=== PATIENT | male | born 1940 | race Caucasian/White ===

== ENCOUNTER 2022-06-28 15:01 | Inpatient (IN) | payer MEDICARE, BC, SELFPAY ==
[2022-06-28] VITALS (14 sets, daily range): BP systolic 141–170; BP diastolic 85–89; PULSE 74–79; RESP 16–36; TEMP 36.1–37.6; O2SAT 88–92; BMI 28.2; BMI 29.4
--- NOTE | 2022-06-28 15:30 | CRLHL7_ITS ---
For Patients: As a result of the Century Cures Act, medical imaging exams and procedure reports are released immediately into your electronic medical record. You may view this report before your referring provider. If you have questions, please contact your health care provider. HISTORY: Shortness of breath. TECHNIQUE: Two views of the chest. COMPARISON: 03/28/2021. CT 03/30/2021. FINDINGS: Three lead pacer device with leads terminating within the expected location of the right atrium, right ventricle and coronary sinus. Cardiac size is borderline enlarged. New small left pleural effusion. There are few areas of patchy opacity within the lungs which may relate to subtle infiltrates. These are overall similar to the prior examination suggesting chronic interstitial infiltrates. There is no segmental or lobar consolidation. No pneumothorax. IMPRESSION: No change in interstitial lung infiltrates. Dictated by Alton Sandoval MD @ 06/28/2022 4:32:02 PM Dictated by: Alton Sandoval MD @ 06/28/2022 16:32:09 (Electronically Signed)
--- NOTE | 2022-06-28 15:38 | ED_ITS ---
HPI - Weakness General Date Seen: 06/28/22 <John Lee MD - Last Filed: 06/28/22 20:23> Chief complaint: Unspecified Complaint, Adult <John Lee MD - Last Filed: 06/28/22 20:23> Stated complaint: Shaking Not Eating <John Lee MD - Last Filed: 06/28/22 20:23> Time Seen by Provider: 06/28/22 15:04 <John Lee MD - Last Filed: 06/28/22 20:23> Source: patient and family <John Lee MD - Last Filed: 06/28/22 20:23> Mode of arrival: ambulatory <John Lee MD - Last Filed: 06/28/22 20:23> Limitations: no limitations <John Lee MD - Last Filed: 06/28/22 20:23> History of Present Illness HPI Narrative: Patient is a 82-year-old gentleman who presents here for evaluation of weakness overall and not eating he has also been shaking, he has been in all hospital now for the past 2 years, on off with most recent in April, he was in a convalescence our senior living in [place], discharge there I believe on Thursday, and came up here to [place]. He is here with his daughter who he lives with, she says that he feels and seems like that he is very weak and shaky at home. She does not think she is able to care for him there because of this. He feels hot but she admits that her thermometer is broken at home. Daughter is a nurse. History of cellulitis of the right upper extremity, history of diabetes mellitus, history of acute pulmonary edema, history chronic kidney disease stage 5, history of heart failure, history of fluid overload, history chronic obstructive pulmonary disease, history of DVT of the right upper extremity, history of previous cardiac pacemaker, history of hypertension, history of anemia, history of weakness, history of falling, history of NSTEMI, history of so wasting, history of dysphagia, history of BPH, <John Lee MD - Last Filed: 06/28/22 20:23> Related Data Home medications: Home Medications Medication Instructions Recorded Confirmed allopurinol 100 mg tablet 50 mg PO QAM gout pain 06/28/22 06/28/22 atorvastatin 40 mg tablet 40 mg PO QPM 06/28/22 06/28/22 bumetanide 2 mg tablet mg PO 06/28/22 carvedilol 12.5 mg tablet 12.5 mg PO BID 06/28/22 06/28/22 finasteride 5 mg tablet 5 mg PO DAILY 06/28/22 06/28/22 insulin glargine 100 unit/mL (3 12 unit subcut BID 06/28/22 06/28/22 mL) subcutaneous pen (Lantus Solostar U-100 Insulin) losartan 25 mg tablet 25 mg PO DAILY 06/28/22 06/28/22 tamsulosin 0.4 mg capsule 0.4 mg PO DAILY 06/28/22 06/28/22 <John Lee MD - Last Filed: 06/28/22 20:23> Allergies/Adverse reactions: Allergies Allergy/AdvReac Type Severity Reaction Status Date / Time No Known Drug Allergies Allergy Verified 06/28/22 15:21 <John Lee MD - Last Filed: 06/28/22 20:23> Review of Systems Status of ROS: Reports: 10 or more systems reviewed and unremarkable except as noted in History and below <John Lee MD - Last Filed: 06/28/22 20:23> [facility] Medical History: Medical History (Updated 06/28/22 @ 20:10 by Jacquelyn White MD) Abnormal liver function tests (~11/23/20) ?R79.89 - Other specified abnormal findings of blood chemistry (ICD-10) Anemia (~01/31/21) ?D64.9 - Anemia, unspecified (ICD-10) Anemia in chronic kidney disease (~03/18/21) ?N18.9 - Chronic kidney disease, unspecified (ICD-10) ?D63.1 - Anemia in chronic kidney disease (ICD-10) Benign prostatic hyperplasia without urinary obstruction (~11/23/20) ?N40.0 - Benign prostatic hyperplasia without lower urinary tract symptoms (ICD-10) Bleeding gastrointestinal (~12/13/20) ?K92.2 - Gastrointestinal hemorrhage, unspecified (ICD-10) Cardiomyopathy (~10/13/13) ?I42.9 - Cardiomyopathy, unspecified (ICD-10) Chronic combined systolic (congestive) and diastolic (congestive) heart failure (~11/23/20) ?I50.42 - Chronic combined systolic (congestive) and diastolic (congestive) heart failure (ICD-10) Chronic kidney disease, stage III (moderate) (~09/21/13) ?N18.30 - Chronic kidney disease, stage 3 unspecified (ICD-10) Diabetes mellitus type 2 in obese (~09/10/12) ?E11.69 - Type 2 diabetes mellitus with other specified complication (ICD-10) ?E66.9 - Obesity, unspecified (ICD-10) Diabetic nephropathy associated with type 2 diabetes mellitus (~09/10/12) ?E11.21 - Type 2 diabetes mellitus with diabetic nephropathy (ICD-10) Gout (~01/08/16) ?M10.9 - Gout, unspecified (ICD-10) Hyperlipidemia (~10/03/13) ?E78.5 - Hyperlipidemia, unspecified (ICD-10) Hypertension (~10/13/13) ?I10 - Essential (primary) hypertension (ICD-10) Left bundle branch block (~10/13/13) ?I44.7 - Left bundle-branch block, unspecified (ICD-10) Leg swelling (~12/15/13) ?M79.89 - Other specified soft tissue disorders (ICD-10) Pneumonia due to COVID-19 virus (~11/18/20) ?U07.1 - COVID-19 (ICD-10) ?J12.82 - Pneumonia due to coronavirus disease 2019 (ICD-10) Streptococcal septicemia (~02/04/21) ?A40.9 - Streptococcal sepsis, unspecified (ICD-10) Systolic heart failure (~02/1999) ?I50.20 - Unspecified systolic (congestive) heart failure (ICD-10) Type 2 DE (myocardial infarction) (~01/31/21) ?I21.A1 - Myocardial infarction type 2 (ICD-10) <John Lee MD - Last Filed: 06/28/22 20:23> Surgical History: Surgical History (Updated 06/28/22 @ 20:06 by Jacquelyn White MD) S/P right knee arthroscopy (~10/20/05) ?Z98.890 - Other specified postprocedural states (ICD-10) S/P TURP ?Z90.79 - Acquired absence of other genital organ(s) (ICD-10) <John Lee MD - Last Filed: 06/28/22 20:23> Family History: Family History (Updated 06/28/22 @ 20:07 by Jacquelyn White MD) Brother Diabetes Kidney disease Cancer Father Diabetes Heart disease Mother Diabetes <John Lee MD - Last Filed: 06/28/22 20:23> Social History: Social History (Updated 06/28/22 @ 20:11 by Jacquelyn White MD) Narrative: Was living in [place] until after most recent hospitalization. He is staying with his daughter, who is a nurse. Quit tobacco use at age 17, 1956. Denies alcohol or recreational drug use. Full Code in 2020. <John Lee MD - Last Filed: 06/28/22 20:23> Exam Narrative: Exam Narrative: Patient is seen in room 6, he is pleasant alert he appears to be in no distress, speaking to me normally despite their respiratory rate in the high 20s pupils are equal round reactive to light, is TMs are normal his oropharynx normal, JVP is 4-6 cm, neck is supple, cranial nerves 3-12 are normal. Chest has crackles in the bases to mid scapula bilaterally, no dullness to percussion no signs of other respiratory distress, heart sounds no clicks murmurs or gallops, his right upper extremity is more swollen and atrophied in comparison to the left, pulses are normal in his upper extremities, as there in lower extremities he has 2+ pitting edema bilaterally in his lower extremities, but normal power symmetrical right versus left. His abdomen is soft and pot belly, no dullness to percussion, tenderness on palpation bowel sounds are quiet. I spoke to the daughter, explained him that we will check for a number of things, but we need to have admission reason to admit him to the hospital. <John Lee MD - Last Filed: 06/28/22 20:23> Const: Vital Signs, click to edit/add: Vital Signs - 24 hr 06/28/22 15:12 06/28/22 17:58 06/28/22 18:00 Temperature 99.6 F Pulse Rate 77 76 Pulse Rate [Pulse Oximeter] 79 Respiratory Rate 36 H Blood Pressure Blood Pressure [Ri ght Upper Arm] 170/89 H Pulse Oximetry 89 88 91 Oxygen Delivery Me thod Room Air 06/28/22 18:15 06/28/22 18:30 06/28/22 18:45 Temperature Pulse Rate 75 74 74 Pulse Rate [Pulse Oximeter] Respiratory Rate Blood Pressure Blood Pressure [Ri ght Upper Arm] Pulse Oximetry 89 89 89 Oxygen Delivery Me thod 06/28/22 18:49 Temperature Pulse Rate 78 Pulse Rate [Pulse Oximeter] Respiratory Rate Blood Pressure 159/89 H Blood Pressure [Ri ght Upper Arm] Pulse Oximetry 91 Oxygen Delivery Me thod <John Lee MD - Last Filed: 06/28/22 20:23> Vital Signs, click to edit/add: Vital Signs - 24 hr 06/28/22 15:12 06/28/22 17:58 06/28/22 18:00 Temperature 99.6 F Pulse Rate 77 76 Pulse Rate [Pulse Oximeter] 79 Respiratory Rate 36 H Blood Pressure Blood Pressure [Ri ght Upper Arm] 170/89 H Pulse Oximetry 89 88 91 Oxygen Delivery Me thod Room Air 06/28/22 18:15 06/28/22 18:30 06/28/22 18:45 Temperature Pulse Rate 75 74 74 Pulse Rate [Pulse Oximeter] Respiratory Rate Blood Pressure Blood Pressure [Ri ght Upper Arm] Pulse Oximetry 89 89 89 Oxygen Delivery Me thod 06/28/22 18:49 Temperature Pulse Rate 78 Pulse Rate [Pulse Oximeter] Respiratory Rate Blood Pressure 159/89 H Blood Pressure [Ri ght Upper Arm] Pulse Oximetry 91 Oxygen Delivery Me thod <Salma Ramos MD - Last Filed: 06/28/22 19:23> Documenting provider has reviewed patient's vital signs: yes <John Lee MD - Last Filed: 06/28/22 20:23> Course Reevaluation(s) Reevaluation #1: Patient was evaluated, his right arm is not showing any evidence of erythema but the distal forearm, wrist and hand are quite edematous. Seems to be painful for him to mobilize the wrist. His daughter notes that he had the wrist and the elbow drained when he was in the hospital with sepsis. She is worried when he tries to lay down that he actually is getting short of breath. He was shaking at home, she wondered about recurrent sepsis. He is just out of the senior living at the [facility] in [place]. He has only been with his daughter a short couple of days now. He is sitting up in the bed, O2 sats are anywhere from 88-90%. I do see a p.r.n. 1 L oxygen order in his senior living orders for shortness of breath. I have added on a procalcitonin, D-dimer as well as a venous ultrasound of his right arm. His chest x-ray has been read as stable interstitial infiltrates. I have 2 troponins, 1 on arrival 0.19 and 1 at sometime after 6:00 p.m. that is 0.22. I have spoken with the hospitalist whom is requesting I talked to Cardiology prior to admission. I think this patient needs observation for possible recurrent cellulitis versus sepsis that might be developing. Right now there are no symptoms that suggest infection on his arm but his C reactive protein is quite elevated. It is possible that his C reactive protein is so elevated as this may be inflammatory reaction from something as simple as gout. I did add on a uric acid. I have reviewed his EKG from arrival which is showing some flipped T-waves inferiorly without any significant ST segment changes, flipped T-wave V6 and flattening in V5. He has nonspecific intra conduction delay. Daughter does not know any troponin levels while he was in the hospital or if they were elevated in [place]. Patient also has chronic renal failure with creatinine of 2.2 here today. <Salma Peng MD - Last Filed: 06/28/22 19:23> Time: 18:56 <Salma Ramos MD - Last Filed: 06/28/22 19:23> Reevaluation #2: Spoke with Dr. Petra Rodriguez Cardiology. He believes these to be strain pattern, patient get sick and leaks troponins. He would not take him to a laborer cheesemaking, would not do any intervention. He was able to see an EKG from September in his system and sounds to be similar to the 1 I am seeing today. I have spoken with Dr. White, she accepts. <Salma Ramos MD - Last Filed: 06/28/22 19:23> Time: 19:20 <Salma Ramos MD - Last Filed: 06/28/22 19:23> Vital Signs Vital signs: Initial Vital Signs Temperature 99.6 F 06/28/22 15:12 Temperature Source Temporal Artery Scan 06/28/22 15:12 Pulse Rate 79 06/28/22 15:12 Respiratory Rate 36 H 06/28/22 15:12 Blood Pressure 170/89 H 06/28/22 15:12 Blood Pressure Mean 116 06/28/22 15:12 Blood Pressure Position Supine 06/28/22 15:12 Pulse Oximetry 89 06/28/22 15:12 Oxygen Delivery Method Room Air 06/28/22 15:12 Vital Signs Temperature 99.6 F 06/28/22 15:12 Pulse Rate 79 06/28/22 15:12 Respiratory Rate 36 H 06/28/22 15:12 Blood Pressure 170/89 H 06/28/22 15:12 Pulse Oximetry 89 06/28/22 15:12 Oxygen Delivery Method Room Air 06/28/22 15:12 Temperature 99.6 F 06/28/22 15:12 Pulse Rate 78 06/28/22 18:49 Respiratory Rate 36 H 06/28/22 15:12 Blood Pressure 159/89 H 06/28/22 18:49 Pulse Oximetry 91 06/28/22 18:49 Oxygen Delivery Method Room Air 06/28/22 15:12 <John Lee MD - Last Filed: 06/28/22 20:23> Initial Vital Signs Temperature 99.6 F 06/28/22 15:12 Temperature Source Temporal Artery Scan 06/28/22 15:12 Pulse Rate 79 06/28/22 15:12 Respiratory Rate 36 H 06/28/22 15:12 Blood Pressure 170/89 H 06/28/22 15:12 Blood Pressure Mean 116 06/28/22 15:12 Blood Pressure Position Supine 06/28/22 15:12 Pulse Oximetry 89 06/28/22 15:12 Oxygen Delivery Method Room Air 06/28/22 15:12 Vital Signs Temperature 99.6 F 06/28/22 15:12 Pulse Rate 79 06/28/22 15:12 Respiratory Rate 36 H 06/28/22 15:12 Blood Pressure 170/89 H 06/28/22 15:12 Pulse Oximetry 89 06/28/22 15:12 Oxygen Delivery Method Room Air 06/28/22 15:12 Temperature 99.6 F 06/28/22 15:12 Pulse Rate 78 06/28/22 18:49 Respiratory Rate 36 H 06/28/22 15:12 Blood Pressure 159/89 H 06/28/22 18:49 Pulse Oximetry 91 06/28/22 18:49 Oxygen Delivery Method Room Air 06/28/22 15:12 <Salma Ramos MD - Last Filed: 06/28/22 19:23> MDM - Weakness Lab Data Attestation: I reviewed the patient's lab results. <Salma Ramos MD - Last Filed: 06/28/22 19:23> Labs: Lab Results 06/28/22 06/28/22 06/28/22 Range/Units 16:00 17:57 18:12 WBC 9.54 (4.50-11.00) K/uL RBC 3.64 L (4.30-5.90) m/uL Hgb 11.4 L (13.5-17.5) gm/dL Hct 34.4 L (37.0-53.0) % MCV 95 (80-100) fL MCH 31 (26-34) pg MCHC 33 (32-36) gm/dL RDW Coeff of Chris 14.5 (11.5-15.5) % Plt Count 161 (140-440) K/uL Neut % (Auto) 70.3 (42.0-72.0) % Lymph % (Auto) 12.8 L (20-44) % [place] % (Auto) 15.4 H (0.0-11.0) % Eos % (Auto) 0.6 (0.0-7.0) % Baso % (Auto) 0.3 (0.0-3.0) % Neut # (Auto) 6.70 (1.7-7.0) K/uL Lymph # (Auto) 1.20 (0.90-2.90) K/uL [place] # (Auto) 1.50 H (0.00-0.90) K/UL Eos # (Auto) 0.06 (0.00-0.50) K/uL Baso # (Auto) 0.03 (0.00-0.30) K/uL INR 1.09 (0.91-1.10) APTT 33 (23-33) Seconds D-Dimer Quant (PE/DVT) < 0.27 (0.00-0.50) ug/ml Sodium 137 (135-149) mmol/L Potassium 4.6 (3.6-5.1) mmol/L Chloride 104 (96-114) mmol/L Carbon Dioxide 25 (20-32) mmol/L BUN 63 H (7-30) mg/dL Creatinine 2.2 H (0.5-1.5) mg/dL Estimated Creat Clear 23.76 Estimated GFR 29 ml/min Glucose 290 H (60-115) mg/dL Uric Acid 8.7 H (2.2-8.4) mg/dL Calcium 9.8 (8.4-10.6) mg/dL C-Reactive Protein 5.4 H (0.5-1.0) mg/dL NT-Pro-B Natriuret Pep 96201 pg/mL Procalcitonin 0.12 (<0.50) ng/mL Urine Color Yellow (Yellow) Urine Appearance Clear (Clear) Urine pH 6.0 (5.0-8.5) Ur Specific [place]ila 1.020 (1.000-1.030) Urine Protein 3+ A (Negative) Urine Glucose (UA) Trace A (Negative) Urine Ketones Negative (Negative) Urine Blood 3+ A (Negative) Urine Nitrite Negative (Negative) Urine Bilirubin Negative (Negative) Urine Urobilinogen 0.2 (0.2-1.0) Ur Leukocyte Esterase Negative (Negative) Urine RBC 2-5 A (0-2) Urine WBC 0-2 (0-5) Ur Squamous Epith Cells None (None-Few) Urine Bacteria None (None) SARS-CoV-2 (PCR) Negative SARS-CoV-2 (Negative) Influenza Type A (PCR) Negative PCR FLU A (Negative) Influenza Type B (PCR) Negative PCR FLU B (Negative) RSV (PCR) Negative PCR RSV (Negative) POC Troponin I 0.19 H 0.22 H (0.01-0.04) ng/ml <John Lee MD - Last Filed: 04/15/23 20:23> Lab Results 06/28/22 06/28/22 06/28/22 Range/Units 16:00 17:57 18:12 WBC 9.54 (4.50-11.00) K/uL RBC 3.64 L (4.30-5.90) m/uL Hgb 11.4 L (13.5-17.5) gm/dL Hct 34.4 L (37.0-53.0) % MCV 95 (80-100) fL MCH 31 (26-34) pg MCHC 33 (32-36) gm/dL RDW Coeff of Chris 14.5 (11.5-15.5) % Plt Count 161 (140-440) K/uL Neut % (Auto) 70.3 (42.0-72.0) % Lymph % (Auto) 12.8 L (20-44) % [place] % (Auto) 15.4 H (0.0-11.0) % Eos % (Auto) 0.6 (0.0-7.0) % Baso % (Auto) 0.3 (0.0-3.0) % Neut # (Auto) 6.70 (1.7-7.0) K/uL Lymph # (Auto) 1.20 (0.90-2.90) K/uL [place] # (Auto) 1.50 H (0.00-0.90) K/UL Eos # (Auto) 0.06 (0.00-0.50) K/uL Baso # (Auto) 0.03 (0.00-0.30) K/uL INR 1.09 (0.91-1.10) APTT 33 (23-33) Seconds D-Dimer Quant (PE/DVT) < 0.27 (0.00-0.50) ug/ml Sodium 137 (135-149) mmol/L Potassium 4.6 (3.6-5.1) mmol/L Chloride 104 (96-114) mmol/L Carbon Dioxide 25 (20-32) mmol/L BUN 63 H (7-30) mg/dL Creatinine 2.2 H (0.5-1.5) mg/dL Estimated Creat Clear 23.76 Estimated GFR 29 ml/min Glucose 290 H (60-115) mg/dL Uric Acid 8.7 H (2.2-8.4) mg/dL Calcium 9.8 (8.4-10.6) mg/dL C-Reactive Protein 5.4 H (0.5-1.0) mg/dL NT-Pro-B Natriuret Pep 00377 pg/mL Procalcitonin 0.12 (<0.50) ng/mL Urine Color Yellow (Yellow) Urine Appearance Clear (Clear) Urine pH 6.0 (5.0-8.5) Ur Specific [place] 1.020 (1.000-1.030) Urine Protein 3+ A (Negative) Urine Glucose (UA) Trace A (Negative) Urine Ketones Negative (Negative) Urine Blood 3+ A (Negative) Urine Nitrite Negative (Negative) Urine Bilirubin Negative (Negative) Urine Urobilinogen 0.2 (0.2-1.0) Ur Leukocyte Esterase Negative (Negative) Urine RBC 2-5 A (0-2) Urine WBC 0-2 (0-5) Ur Squamous Epith Cells None (None-Few) Urine Bacteria None (None) SARS-CoV-2 (PCR) Negative SARS-CoV-2 (Negative) Influenza Type A (PCR) Negative PCR FLU A (Negative) Influenza Type B (PCR) Negative PCR FLU B (Negative) RSV (PCR) Negative PCR RSV (Negative) POC Troponin I 0.19 H 0.22 H (0.01-0.04) ng/ml <Salma Ramos MD - Last Filed: 06/28/22 19:23> Imaging Data Chest x-ray: Attestation: I have reviewed the pertinent imaging results. <Salma Peng MD - Last Filed: 06/28/22 19:23> Radiologist's impression: Patient: MADDY YATES Facility:?[facility] Patient ID:?[id number] Site Patient ID:?[id number]. Site :?[id number] Study:?XRay Chest 2 views-06/28/2022 4:05:35 PM Ordering Physician:Moreno Lopez Final Report: HISTORY: Shortness of breath. TECHNIQUE: Two views of the chest. COMPARISON: 03/28/2021. CT 03/30/2021. FINDINGS: Three lead pacer device with leads terminating within the expected location of the right atrium, right ventricle and coronary sinus. Cardiac size is borderline enlarged. New small left pleural effusion. There are few areas of patchy opacity within the lungs which may relate to subtle infiltrates. These are overall similar to the prior examination suggesting chronic interstitial infiltrates. There is no segmental or lobar consolidation. No pneumothorax. IMPRESSION: No change in interstitial lung infiltrates. Dictated by Alton Sandoval MD @ 06/28/2022 4:32:02 PM Dictated by: Alton Sandoval MD @ 06/28/2022 16:32:09 (Electronic Signature) <Salma Ramos MD - Last Filed: 06/28/22 19:23> ECG Data Attestation: I personally reviewed and interpreted this ECG as follows: (Sinus rhythm, 71 beats per minute. Nonspecific intra conduction delay. Flipped T-waves inferiorly and V6 without ST segment changes, flattened T-waves V5. QT corrected 443 milliseconds.) <Salma Ramos MD - Last Filed: 06/28/22 19:23> ECG interpretation date: 06/28/22 <Salma Ramos MD - Last Filed: 06/28/22 19:23> ECG interpretation time: 19:03 <Salma Ramos MD - Last Filed: 06/28/22 19:23> Critical Care Time Critical Care Time Critical Care Time: No <Salma Ramos MD - Last Filed: 06/28/22 19:23> Discharge Plan Discharge Clinical Impression: Pain and swelling of right forearm, Elevated troponin, Shaking, Weakness, Chronic renal failure <John Lee MD - Last Filed: 06/28/22 20:23> Patient Disposition: Admitted As Inpatient <John Lee MD - Last Filed: 06/28/22 20:23> Condition: Unchanged <John Lee MD - Last Filed: 06/28/22 20:23>
--- NOTE | 2022-06-28 16:05 | ED.NURSE ---
Critical Troponin handed to at 1600
[2022-06-28 16:18] LABS: Troponin, Point-of-Care* 0.19 ng/ml (0.01-0.04)
[2022-06-28 16:20] LABS: Basophils Absolute Auto 0.03 K/uL (0.00-0.30); Basophils Percent Auto 0.3 % (0.0-3.0); Eosinophils Absolute Auto 0.06 K/uL (0.00-0.50); Eosinophils Percent Auto 0.6 % (0.0-7.0); Hematocrit 34.4 % (37.0-53.0); Hemoglobin* 11.4 gm/dL (13.5-17.5); Immature Granulocytes Abs Auto 0.06 K/uL (0.00-0.30); Immature Granulocytes Pct Auto 0.6 %; Lymphocytes Percent Auto 12.8 % (20-44); Mean Corpuscular HGB Conc 33 gm/dL (32-36); Mean Corpuscular Hemoglobin 31 pg (26-34); Mean Corpuscular Volume 95 fL (80-100); Monocytes Percent Auto 15.4 % (0.0-11.0); Neutrophils Percent Auto 70.3 % (42.0-72.0); Platelet Count* 161 K/uL (140-440); RDW Coefficient of Variation % 14.5 % (11.5-15.5); Red Blood Count 3.64 m/uL (4.30-5.90); White Blood Count* 9.54 K/uL (4.50-11.00)
[2022-06-28 16:31] LABS: Slide Review Reflex No
[2022-06-28 16:33] LABS: Chloride* 104 mmol/L (96-114)
[2022-06-28 16:34] LABS: Potassium* 4.6 mmol/L (3.6-5.1); Sodium* 137 mmol/L (135-149)
[2022-06-28 16:36] LABS: Creatinine* 2.2 mg/dL (0.5-1.5); Est. Creatinine Clearance* 23.76; Estimated Glomerular Filt Rate 29 ml/min; INR 1.09 (0.91-1.10); Prothrombin Time 14.7 Seconds
[2022-06-28 16:37] LABS: Blood Urea Nitrogen* 63 mg/dL (7-30); Calcium* 9.8 mg/dL (8.4-10.6); Carbon Dioxide* 25 mmol/L (20-32); Glucose* 290 mg/dL (60-115); Partial Thromboplastin Time* 33 Seconds (23-33)
[2022-06-28 16:40] LABS: C Reactive Protein* 5.4 mg/dL (0.5-1.0)
[2022-06-28 16:42] LABS: D Dimer Quantitative* < 0.27 ug/ml (0.00-0.50)
[2022-06-28 16:49] LABS: NT Pro B Type NatriureticPept* 13100 pg/mL
[2022-06-28 17:00] LABS: PCR FLU A Negative PCR FLU A (Negative); PCR FLU B Negative PCR FLU B (Negative); PCR RSV Negative PCR RSV (Negative)
[2022-06-28 17:01] LABS: SARS PCR* Negative SARS-CoV-2 (Negative)
[2022-06-28 18:13] LABS: Appearance Urine Clear (Clear); Bilirubin Urine Negative (Negative); Blood Urine 3+ (Negative); Color Urine Yellow (Yellow); Glucose Urine Trace (Negative); Ketones Urine Negative (Negative); Leukocyte Esterase Urine Negative (Negative); Nitrite Urine Negative (Negative); Protein Urine 3+ (Negative); Urobilinogen Urine 0.2 (0.2-1.0)
--- NOTE | 2022-06-28 18:39 | CRLHL7_ITS ---
For Patients: As a result of the Century Cures Act, medical imaging exams and procedure reports are released immediately into your electronic medical record. You may view this report before your referring provider. If you have questions, please contact your health care provider. INDICATION: Right upper extremity pain and swelling. TECHNIQUE: Ultrasound venous duplex upper right extremity. Compression venous exam was performed using ramos-scale, color Doppler, and spectral Doppler imaging. COMPARISON: None. FINDINGS: Deep veins: The visualized right internal jugular, subclavian, brachial, veins are fully compressible, demonstrate normal color flow, and normal response to mechanical augmentation. The Duplex Doppler waveforms are normal in appearance. The right axillary vein was not well visualized due to inability to move the arm without pain. Superficial veins: The visualized cephalic, brachial and basilic veins are unremarkable. Soft tissue: Linear echogenic structure identified in the mid upper arm may represent a foreign body.. IMPRESSION: No DVT in the right upper extremity. Linear echogenic structure identified in the mid upper arm may represent a foreign body. Dictated by Lela Gonzalez MD @ 06/28/2022 10:59:54 PM (Electronically Signed)
[2022-06-28 18:45] LABS: Troponin, Point-of-Care* 0.22 ng/ml (0.01-0.04)
[2022-06-28 18:46] LABS: WBC Urine 0-2 (0-5)
[2022-06-28 18:53] LABS: Uric Acid* 8.7 mg/dL (2.2-8.4)
[2022-06-28 19:11] LABS: Procalcitonin* 0.12 ng/mL (<0.50)
--- NOTE | 2022-06-28 21:05 | PM.IMHP1 ---
Hospitalist- H&P: HPI History of Present Illness Time Seen by Provider: 20:45 Date Seen: 06/29/22 Chief complaint: Shaking Not Eating Narrative: Talib Nation is a 82 year old male with a complicated medical history who was brought in by his daughter for concerns of low appetite and shaking. Talib seems a bit confused and is a poor historian. His daughter was not present while I interviewed him, so I called her later and got history from her as well. Unfortunately she does not have any information about his hospital stay at the end of 2021. Talib is normally an independent individual who lives in [place] and price in [place]. He had COVID a little over a year ago and has had brain fog since then. In January or February he had a right arm cellulitis for which he was admitted to a hospital in [place]. Nobody contacted his daughter and Talib did not have any records from there, so she does not have much information about this hospital stay. He was in the hospital for several weeks and had surgery on his right arm as well to drain something. After being in the hospital he was in a intermediate facility until the of this month. He went home to his camper in [place] and then flew back to [place] by himself on Thursday. On he drove around town independently here, running some errands. He was not having any trouble with his right arm at that time. Yesterday his daughter noticed that he was not eating and he was having occasional shakes and chills. He seem to be in pain in his right arm and was not using it much. She did not think he had any confusion, and thinks that his mental status is at its baseline. Review of Systems Status of ROS: Reports: 10 or more systems reviewed and unremarkable except as noted in History and below Const: Reports: chills; Denies: fever Cardio: Reports: edema (Right arm, swelling has gotten a little better in last few months) and swelling of feet/ankles; Denies: chest pain, palpitations or shortness of breath with exertion Resp: Denies: shortness of breath, cough, wheezing or chest congestion Allergy/Immuno: Denies: wheezing PFSH [facility] Medical History (Updated 06/29/22 @ 00:55 by Jacquelyn White MD) Abnormal liver function tests (~11/23/20) ?R79.89 - Other specified abnormal findings of blood chemistry (ICD-10) Acute embolism and thrombosis of deep veins of right upper extremity (~2022) ?I82.621 - Acute embolism and thrombosis of deep veins of right upper extremity (ICD-10) Acute pulmonary edema (~2022) ?J81.0 - Acute pulmonary edema (ICD-10) Anemia (~01/31/21) ?D64.9 - Anemia, unspecified (ICD-10) Anemia in chronic kidney disease (~03/18/21) ?N18.9 - Chronic kidney disease, unspecified (ICD-10) ?D63.1 - Anemia in chronic kidney disease (ICD-10) Benign prostatic hyperplasia without urinary obstruction (~11/23/20) ?N40.0 - Benign prostatic hyperplasia without lower urinary tract symptoms (ICD-10) Bleeding gastrointestinal (~12/13/20) ?K92.2 - Gastrointestinal hemorrhage, unspecified (ICD-10) Cardiac pacemaker ?Z95.0 - Presence of cardiac pacemaker (ICD-10) Cardiomyopathy (~10/13/13) ?I42.9 - Cardiomyopathy, unspecified (ICD-10) Cellulitis of right arm (~04/2022) ?L03.113 - Cellulitis of right upper limb (ICD-10) Chronic combined systolic (congestive) and diastolic (congestive) heart failure (~11/23/20) ?I50.42 - Chronic combined systolic (congestive) and diastolic (congestive) heart failure (ICD-10) Chronic kidney disease, stage III (moderate) (~09/21/13) ?N18.30 - Chronic kidney disease, stage 3 unspecified (ICD-10) Chronic obstructive pulmonary disease ?J44.9 - Chronic obstructive pulmonary disease, unspecified (ICD-10) Diabetes mellitus type 2 in obese (~09/10/12) ?E11.69 - Type 2 diabetes mellitus with other specified complication (ICD-10) ?E66.9 - Obesity, unspecified (ICD-10) Diabetic nephropathy associated with type 2 diabetes mellitus (~09/10/12) ?E11.21 - Type 2 diabetes mellitus with diabetic nephropathy (ICD-10) Dysphagia ?R13.10 - Dysphagia, unspecified (ICD-10) Falling ?R29.6 - Repeated falls (ICD-10) Gout (~01/08/16) ?M10.9 - Gout, unspecified (ICD-10) Hyperlipidemia (~10/03/13) ?E78.5 - Hyperlipidemia, unspecified (ICD-10) Hypertension (~10/13/13) ?I10 - Essential (primary) hypertension (ICD-10) Left bundle branch block (~10/13/13) ?I44.7 - Left bundle-branch block, unspecified (ICD-10) Leg swelling (~12/15/13) ?M79.89 - Other specified soft tissue disorders (ICD-10) Pneumonia due to COVID-19 virus (~11/18/20) ?U07.1 - COVID-19 (ICD-10) ?J12.82 - Pneumonia due to coronavirus disease 2019 (ICD-10) Protein calorie malnutrition ?E46 - Unspecified protein-calorie malnutrition (ICD-10) Sick sinus syndrome ?I49.5 - Sick sinus syndrome (ICD-10) Streptococcal septicemia (~02/04/21) ?A40.9 - Streptococcal sepsis, unspecified (ICD-10) Systolic heart failure (~02/1999) ?I50.20 - Unspecified systolic (congestive) heart failure (ICD-10) Type 2 [place] (myocardial infarction) (~01/31/21) ?I21.A1 - Myocardial infarction type 2 (ICD-10) Surgical History (Updated 06/28/22 @ 20:06 by Jacquelyn White MD) S/P right knee arthroscopy (~10/20/05) ?Z98.890 - Other specified postprocedural states (ICD-10) S/P TURP ?Z90.79 - Acquired absence of other genital organ(s) (ICD-10) Family History (Updated 06/28/22 @ 20:07 by Jacquelyn White MD) Brother Diabetes Kidney disease Cancer Father Diabetes Heart disease Mother Diabetes Social History (Updated 06/29/22 @ 00:36 by Jacquelyn White MD) Narrative: Was living in [place] until after most recent hospitalization. He is staying with his daughter, Kristin, who is an [employer]. She had been working night shifts, but recently switched to day shifts and has been gone most of each of the days that he has been back. Quit tobacco use at age 17, in 1958. Denies alcohol or recreational drug use. DNR/DNI. Highest level of school completed/degree received: high school graduate Smoking Status: Never smoker Do you use any of these nicotine containing products: None Second hand tobacco smoke exposure: No How often do you have a drink containing alcohol: never AUDIT-C Alcohol total score: 0 Non-prescribed substance use: denies use Caffeine: No service: No Meds Home Medications and Allergies Home Medications Medication Instructions Recorded Confirmed Type allopurinol 100 mg tablet 50 mg PO QPM gout pain 06/28/22 06/28/22 History amlodipine 10 mg tablet 10 mg PO DAILY 06/28/22 06/28/22 History aspirin 81 mg capsule 81 mg PO DAILY 06/28/22 06/28/22 History atorvastatin 40 mg tablet 40 mg PO QPM 06/28/22 06/28/22 History bumetanide 2 mg tablet See Rx Instructions PO .COMPLEX 06/28/22 06/28/22 History carvedilol 12.5 mg tablet 12.5 mg PO BID 06/28/22 06/28/22 History coenzyme Q10 100 mg chewable 100 mg PO Q OTHER DAY 06/28/22 06/28/22 History tablet (Chew Q) finasteride 5 mg tablet 5 mg PO DAILY 06/28/22 06/28/22 History insulin aspart U-100 100 unit/mL 1 sliding scale dose subcut 06/28/22 06/28/22 History (3 mL) subcutaneous pen (Novolog USEASDIRECTD FlexPen U-100 Insulin aspart) insulin glargine 100 unit/mL (3 11 unit subcut QPM 06/28/22 06/28/22 History mL) subcutaneous pen (Basaglar KwikPen U-100 Insulin) insulin glargine 100 unit/mL (3 12 unit subcut DAILY 06/28/22 06/28/22 History mL) subcutaneous pen (Lantus Solostar U-100 Insulin) losartan 25 mg tablet 25 mg PO DAILY 06/28/22 06/28/22 History tamsulosin 0.4 mg capsule 0.4 mg PO DAILY 06/28/22 06/28/22 History Allergies Allergy/AdvReac Type Severity Reaction Status Date / Time No Known Drug Allergies Allergy Verified 06/28/22 15:21 Exam Narrative: Exam Narrative: General: No acute distress. Awake, alert, oriented to self, place, month and day. When I asked him what year it was, he thought for a long time and said, June 28. He tried several more times to come up with the year, but could not. He did know who the president is. HEENT: Normocephalic atraumatic, pupils equally round and reactive to light and accommodation. Oropharynx clear. Mucous membranes are moist. No cervical lymphadenopathy, thyromegaly or carotid bruits. No JVD. Cardiovascular: Regular rate and rhythm. No murmurs, gallops, or rubs. Chest: No increased work of breathing. Clear to auscultation bilaterally. No crackles or wheezes. Abdomen: Obese and protuberant. Bowel sounds present. Soft, nontender. No hepatosplenomegaly or masses. Extremities: 2+ edema of the right upper extremity, especially in the hand. 2+ bilateral pretibial edema, no cyanosis or clubbing. Skin: No jaundice, no pallor, no rashes. Healed surgical scars over the right wrist and right elbow. Neuro: He has difficulty using his right arm, wincing as he tries, but is ultimately able to do what I ask. Sometimes he uses his left arm to help his right arm when it is very painful. He notes that pain is what is limiting him, not weakness. Also he is unable to remember the year as above. There are no other focal deficits. Romberg with left arm only is negative. Due to pain he was unable to hold his right arm out to Romberg. Cranial nerves 2-12 are intact. Extraocular movements are full. No nystagmus. No facial asymmetry. Tongue is midline. Peripheral vision and vision are grossly intact. Strength is 4/5 right arm, 5/5 in the other 3 extremities. DTRs intact and symmetric. Light touch sensation is intact in face body and extremities. Coordination is intact in upper and lower extremities. Const: Vital Signs, click to edit/add: Vital Signs - 24 hr 06/28/22 15:12 06/28/22 17:58 06/28/22 18:00 Temperature 99.6 F Pulse Rate 77 76 Pulse Rate [Left R adial] Pulse Rate [Pulse Oximeter] 79 Respiratory Rate 36 H Blood Pressure Blood Pressure [Le ft Arm] Blood Pressure [Ri ght Upper Arm] 170/89 H Pulse Oximetry 89 88 91 Oxygen Delivery Me thod Room Air Oxygen Flow Rate 04/15/23 18:15 06/28/22 18:30 06/28/22 18:45 Temperature Pulse Rate 75 74 74 Pulse Rate [Left R adial] Pulse Rate [Pulse Oximeter] Respiratory Rate Blood Pressure Blood Pressure [Le ft Arm] Blood Pressure [Ri ght Upper Arm] Pulse Oximetry 89 89 89 Oxygen Delivery Me thod Oxygen Flow Rate 06/28/22 18:49 06/28/22 20:38 06/28/22 20:50 Temperature 97 F L Pulse Rate 78 Pulse Rate [Left R adial] 77 Pulse Rate [Pulse Oximeter] Respiratory Rate 16 18 Blood Pressure 159/89 H Blood Pressure [Le ft Arm] 141/87 H Blood Pressure [Ri ght Upper Arm] Pulse Oximetry 91 92 92 Oxygen Delivery Me thod Nasal Cannula Nasal Cannula Oxygen Flow Rate 1 1 06/28/22 20:55 Temperature 97 F L Pulse Rate Pulse Rate [Left R adial] Pulse Rate [Pulse Oximeter] Respiratory Rate 18 Blood Pressure Blood Pressure [Le ft Arm] 141/87 H Blood Pressure [Ri ght Upper Arm] Pulse Oximetry 92 Oxygen Delivery Me thod Nasal Cannula Oxygen Flow Rate 1 Documenting provider has reviewed patient's vital signs: yes Hospitalist - H&P: Result Labs Labs: Short CBC 06/28/22 Range/Units 16:00 WBC 9.54 (4.50-11.00) K/uL Hgb 11.4 L (13.5-17.5) gm/dL Hct 34.4 L (37.0-53.0) % Plt Count 161 (140-440) K/uL BMP 06/28/22 16:00 Sodium 137 Potassium 4.6 Chloride 104 Carbon Dioxide 25 BUN 63 H Creatinine 2.2 H Glucose 290 H Calcium 9.8 Urine 06/28/22 Range/Units 17:57 Urine Color Yellow (Yellow) Urine Appearance Clear (Clear) Urine pH 6.0 (5.0-8.5) Ur Specific [place] 1.020 (1.000-1.030) Urine Protein 3+ A (Negative) Urine Glucose (UA) Trace A (Negative) Ordering Physician: John Lee M.D. Date of Service: 06/28/22 Procedure(s): XR chest 2V Accession Number(s): [id number] cc: Provider,Not a Local ; John Lee M.D.~ For Patients: As a result of the Cures Act, medical imaging exams and procedure reports are released immediately into your electronic medical record. You may view this report before your referring provider. If you have questions, please contact your health care provider. HISTORY: Shortness of breath. TECHNIQUE: Two views of the chest. COMPARISON: 03/28/2021. CT 03/30/2021. FINDINGS: Three lead pacer device with leads terminating within the expected location of the right atrium, right ventricle and coronary sinus. Cardiac size is borderline enlarged. New small left pleural effusion. There are few areas of patchy opacity within the lungs which may relate to subtle infiltrates. These are overall similar to the prior examination suggesting chronic interstitial infiltrates. There is no segmental or lobar consolidation. No pneumothorax. IMPRESSION: No change in interstitial lung infiltrates. Dictated by Alton Sandoval MD @ 06/28/2022 4:32:02 PM Dictated by: Alton Sandoval MD @ 06/28/2022 16:32:09 (Electronically Signed) Ordering Physician: Salma Ramos M.D. Date of Service: 06/28/22 Procedure(s): US venous UE RT Accession Number(s): [id number] cc: Provider,Not a Local ; Salma Ramos M.D.~ For Patients: As a result of the Cures Act, medical imaging exams and procedure reports are released immediately into your electronic medical record. You may view this report before your referring provider. If you have questions, please contact your health care provider. INDICATION: Right upper extremity pain and swelling. TECHNIQUE: Ultrasound venous duplex upper right extremity. Compression venous exam was performed using ramos-scale, color Doppler, and spectral Doppler imaging. COMPARISON: None. FINDINGS: Deep veins: The visualized right internal jugular, subclavian, brachial, veins are fully compressible, demonstrate normal color flow, and normal response to mechanical augmentation. The Duplex Doppler waveforms are normal in appearance. The right axillary vein was not well visualized due to inability to move the arm without pain. Superficial veins: The visualized cephalic, brachial and basilic veins are unremarkable. Soft tissue: Linear echogenic structure identified in the mid upper arm may represent a foreign body.. IMPRESSION: No DVT in the right upper extremity. Linear echogenic structure identified in the mid upper arm may represent a foreign body. Dictated by Lela Gonzalez MD @ 06/28/2022 10:59:54 PM (Electronically Signed) Ordering Physician: Jacquelyn White M.D. Date of Service: 06/28/22 Procedure(s): CT head/brain wo con Accession Number(s): [id number] cc: Jacquelyn White M.D.; Provider,Not a Local ~ For Patients: As a result of the Cures Act, medical imaging exams and procedure reports are released immediately into your electronic medical record. You may view this report before your referring provider. If you have questions, please contact your health care provider. CT HEAD DATE: 06/28/2022 CLINICAL HISTORY: Patient with confusion. TECHNIQUE: Standard CT scanning of the head was performed. COMPARISON: 03/28/2021. FINDINGS: There is no intracranial hemorrhage. There is no territorial infarction. There are moderate microangiopathic changes. There is diffuse parenchymal volume loss. There is no mass effect or midline shift. The calvarium is unremarkable. The orbits are unremarkable. The paranasal sinuses are unremarkable. The mastoid air cells are unremarkable. The soft tissues are unremarkable. IMPRESSION: 1. No intracranial hemorrhage or territorial infarction. 2. Moderate microangiopathic changes and diffuse parenchymal volume loss. Please note that all CT scans at this facility use dose modulation, iterative reconstruction, and/or weight-based dosing when appropriate to reduce radiation dose to as low as reasonably achievable. Dictated by: Wiliam Nguyen MD @ 06/28/2022 23:20:40 (Electronically Signed) 06/28/2022 3:46 p.m. EKG: Normal sinus rhythm. Heart rate 71 beats per minute. Nonspecific intraventricular block. Lateral infarct, age undetermined. T-wave abnormality, consider inferior ischemia. Assessment and Plan Assessment and plan (1) Pain and swelling of right forearm: Problem comment: He had a recent cellulitis in the right arm, but there is no evidence of recurrent cellulitis at this time. Procalcitonin is unremarkable making bacterial infection less likely. He also had a DVT that arm, but ultrasound today is negative for DVT. He does have a history of gout, so this is potentially early gout, but there is no erythema or heat overlying the joints and it appears he is painful in the entirety of the right upper extremity including the shoulder which would be unusual for gout. Differential also includes gout, injury, and early shingles. Status: Acute (2) Elevated troponin: Problem comment: Suspect demand ischemia. Follow troponin. Appreciate recommendations from Cardiology. Status: Acute (3) Acute kidney injury: Status: Acute (4) Chronic kidney disease, stage III (moderate): Problem comment: -09/10/2012 Creatinine 1.3 -09/21/2013 Creatinine 1.7 -10/27/2013 Creatinine 1.3 -01/01/2015 creatinine 1.7 with estimated GFR 39.7 -07/03/2015 creatinine 1.7 with estimated GFR 39.6 -02/27/2021 creatinine 2.35 -02/06/2021 creatinine 1.48, BUN 66, K 5.2 Status: Chronic (5) Cardiac pacemaker: Status: Chronic (6) Anemia in chronic kidney disease: Problem comment: -02/06/2021 Hgb 10.1 -12/18/2021 Hgb 13.3 Status: Chronic (7) Diabetes mellitus type 2 in obese: Problem comment: -09/10/2012 Hgb A-1-C 7.0 -09/21/2013 Hgb A-1-C 9.7 -01/01/2015 hemoglobin A1c 6.8 -07/03/2015 hemoglobin A1c 8.1 -10/29/2015 hemoglobin A1c 8.5 -06/30/2016 hemoglobin A1c 7.9 -10/09/2016 hemoglobin A1c 7.1 -06/29/2017 hemoglobiun A1c 7.5 -09/24/2017 hemoglobin A1c 8.1 -10/2017 hemoglobin A1c 6.9 -07/20/2018 Hgb A-1-C 7.3 -12/18/2021 HgbA1C 7.4% Status: Chronic (8) Left bundle branch block: Problem comment: 10/11/2013 ECG Sinus rhythm with LBBB with secondary ST-T changes. No previous ECG to compare. Status: Chronic (9) Chronic combined systolic (congestive) and diastolic (congestive) heart failure: Status: Acute Plan 82-year-old male with a complicated medical history was admitted with acute kidney injury on top of chronic kidney disease, elevated troponin, suspect demand ischemia, pain and swelling of the right arm, and possible altered mental status/confusion. It is unclear what the underlying cause of his change in condition is. Right upper extremity ultrasound is negative for DVT. It is possible that this is early sepsis. Admit for observation, monitor on telemetry and follow troponin. His daughter notes that when he is on furosemide he often will develop worsening renal failure in he was sent home on furosemide from the intermediate facility. Switch him over to his usual Bumex, but his daughter will have to bring that in. Hold losartan for now since he has acute kidney injury. While his extremities are edematous, his BUN is elevated and creatinine is elevated and I am not hearing any crackles in his lungs. Therefore I will not increase his diuretic at this time. Blood cultures were drawn in the emergency department. His white count is not elevated and his procalcitonin is within normal limits, so I will hold off on starting antibiotics at this time. I obtained a head CT the setting of confusion in in abilities tell me the year. It was not clear from his daughter whether not this is his baseline. Consult PT and OT, also obtain [place]. Obtain outside records from hospitalization in late 2021.
--- NOTE | 2022-06-28 21:48 | CRLHL7_ITS ---
For Patients: As a result of the Century Cures Act, medical imaging exams and procedure reports are released immediately into your electronic medical record. You may view this report before your referring provider. If you have questions, please contact your health care provider. CT HEAD DATE: 06/28/2022 CLINICAL HISTORY: Patient with confusion. TECHNIQUE: Standard CT scanning of the head was performed. COMPARISON: 03/28/2021. FINDINGS: There is no intracranial hemorrhage. There is no territorial infarction. There are moderate microangiopathic changes. There is diffuse parenchymal volume loss. There is no mass effect or midline shift. The calvarium is unremarkable. The orbits are unremarkable. The paranasal sinuses are unremarkable. The mastoid air cells are unremarkable. The soft tissues are unremarkable. IMPRESSION: 1. No intracranial hemorrhage or territorial infarction. 2. Moderate microangiopathic changes and diffuse parenchymal volume loss. Please note that all CT scans at this facility use dose modulation, iterative reconstruction, and/or weight-based dosing when appropriate to reduce radiation dose to as low as reasonably achievable. Dictated by: Wiliam Nguyen MD @ 06/28/2022 23:20:40 (Electronically Signed)
[2022-06-28 22:11] LABS: Albumin* 3.9 g/dL (3.3-5.0)
[2022-06-28 22:13] LABS: Bilirubin Direct* 0.4 mg/dL (0.0-0.5); Total Protein* 7.2 g/dL (6.0-8.3)
[2022-06-28 22:14] LABS: Alanine Aminotransferase* 19 U/L (4-50); Alkaline Phosphatase* 98 U/L (40-150); Aspartate Amino Transferase* 26 U/L (12-35)
[2022-06-29] VITALS (11 sets, daily range): BP systolic 120–169; BP diastolic 66–92; PULSE 66–79; RESP 16–24; TEMP 36.4–37.3; O2SAT 90–93
--- NOTE | 2022-06-29 04:27 | PC.NURSE ---
Pt rested well this night. Sats in low 90s on 1L NC. Pt up to BR and voiding hourly. Pt able to ambulate IND. Needs help getting out of bed. Pt unable to user right arm. Right hand showing edema from previous cellulitis Surgery in [place] several weeks ago. Pt confused to year and where he was in [place]. Afebrile.. Tele NSR. Pt has a pacemaker. LEs 2+ Pitting edema.
[2022-06-29 06:56] LABS: Basophils Percent Auto 0.2 % (0.0-3.0); Eosinophils Percent Auto 0.2 % (0.0-7.0); Hematocrit 32.9 % (37.0-53.0); Hemoglobin* 10.8 gm/dL (13.5-17.5); Immature Granulocytes Pct Auto 0.4 %; Lymphocytes Percent Auto 7.2 % (20-44); Mean Corpuscular HGB Conc 33 gm/dL (32-36); Mean Corpuscular Hemoglobin 31 pg (26-34); Mean Corpuscular Volume 95 fL (80-100); Monocytes Percent Auto 12.5 % (0.0-11.0); Neutrophils Percent Auto 79.5 % (42.0-72.0); Platelet Count* 146 K/uL (140-440); RDW Coefficient of Variation % 14.4 % (11.5-15.5); Red Blood Count 3.47 m/uL (4.30-5.90); Slide Review Reflex No; White Blood Count* 12.53 K/uL (4.50-11.00)
[2022-06-29 07:08] LABS: Chloride* 104 mmol/L (96-114); Potassium* 4.5 mmol/L (3.6-5.1); Sodium* 136 mmol/L (135-149)
[2022-06-29 07:10] LABS: Creatinine* 2.2 mg/dL (0.5-1.5); Est. Creatinine Clearance* 23.76; Estimated Glomerular Filt Rate 29 ml/min
[2022-06-29 07:11] LABS: Blood Urea Nitrogen* 65 mg/dL (7-30); Calcium* 9.5 mg/dL (8.4-10.6); Carbon Dioxide* 25 mmol/L (20-32); Glucose* 231 mg/dL (60-115)
[2022-06-29 07:29] LABS: Troponin I* 0.24 ng/mL (0.01-0.04)
[2022-06-29] MEDS: FUROSEMIDE 10 MG/ML inj 80 MG IVP ×2 (09:31→17:27)
[2022-06-29] MEDS: carvediloL 6.25 MG TABLET 12.5 MG PO ×2 (09:32→20:11)
[2022-06-29] MEDS: TAMSULOSIN HCL 0.4 MG CAPSULE PO (09:32)
[2022-06-29] MEDS: FINASTERIDE 5 MG TABLET PO (09:33)
[2022-06-29] MEDS: AMLODIPINE 10 MG TABLET PO (09:33)
[2022-06-29] MEDS: ASPIRIN 81 MG TABLET EC PO (09:34)
[2022-06-29] MEDS: SODIUM CHLORIDE 0.9 % (FLUSH) 10 ML SYRINGE 5 ML IVF ×2 (09:35→20:32)
[2022-06-29] MEDS: BUMETANIDE 1 MG TABLET 2 MG PO (09:41)
--- NOTE | 2022-06-29 11:47 | CRLHL7_ITS ---
For Patients: As a result of the Cures Act, medical imaging exams and procedure reports are released immediately into your electronic medical record. You may view this report before your referring provider. If you have questions, please contact your health care provider. Indication: Pain Technique: Three views right shoulder Comparison: No comparison Findings: Normal articulation of the glenohumeral joint. Calcific tendinosis. Possible chondrocalcinosis. No acute fracture seen AC degenerative change. Dictated by Ileana Doshi MD @ 06/29/2022 1:26:44 PM (Electronically Signed)
--- NOTE | 2022-06-29 11:47 | CRLHL7_ITS ---
For Patients: As a result of the Century Cures Act, medical imaging exams and procedure reports are released immediately into your electronic medical record. You may view this report before your referring provider. If you have questions, please contact your health care provider. Indication: Pain Technique: Three views right elbow Comparison: No comparison Findings: Soft tissue edema. Olecranon spur. Arthritic changes of the elbow. No acute fracture is seen. Possible small effusion. Dictated by Ileana Doshi MD @ 06/29/2022 1:28:07 PM (Electronically Signed)
--- NOTE | 2022-06-29 12:14 | P.IMPN_ITS ---
Progress Note: A&P Assessment and plan (1) Pain and swelling of right forearm: Problem details: Profound weakness and pain in the right upper extremity. Primarily in the shoulder to a lesser extent the elbow and wrist. Forearm has moderate edema which appears to be dependent. Patient and daughter report the time course of this is a couple days though the patient indicated that it may be a longer problem, especially with his shoulder. Previous history of surgery to the right upper extremity with his abscess and cellulitis earlier this winter noted. Also noted previous DVT of the right upper extremity. Cause for current symptoms is uncertain. Could primarily be a musculoskeletal injury and pain problem. Neurologic problem such as a stroke also possible. Status: Acute (2) Elevated troponin: Problem details: Likely demand ischemia related to chronic heart failure, stage 4 kidney disease, current hypoxia and fever. Status: Acute (3) Anemia in chronic kidney disease: Problem details: -02/06/2021 Hgb 10.1 -12/18/2021 Hgb 13.3 Status: Chronic (4) Diabetes mellitus type 2 in obese: Problem details: Last hemoglobin A1c 12/18/2021 was 7.4. Continue to monitor and manage blood sugar. Status: Chronic (5) Left bundle branch block: Problem details: 10/11/2013 ECG Sinus rhythm with LBBB with secondary ST-T changes. No previous ECG to compare. Status: Chronic (6) Chronic combined systolic (congestive) and diastolic (congestive) heart failure: Problem details: Last echo 03/29/2021 showed normal left ventricular size with mildly increased wall thickness and moderately reduced global systolic function with an ejection fraction of 34%. Normal right ventricle and no marked valvular disease. Status: Acute (7) Stage 4 chronic kidney disease: Problem details: Saw collection coordinator on 01/21/2022 creatinine of 2.4 and GFR of 26 which was reported to be stable at that point. Status: Acute (8) Hypoxia: Problem details: Suspect heart failure exacerbation. IV furosemide and obtain echo. He has a history of being on and off oxygen in the past. Status: Acute (9) Frailty: Problem details: Patient is been in an out of the hospital in pen[facility] multiple times in the last couple years associated with his right arm infection and COVID infection. Multiple serious chronic medical problems. I began a discussion with patient and his daughter about needing more assistance and supervision Status: Acute (10) Chronic obstructive pulmonary disease: Problem details: With current hypoxia will initiate nebulizer treatments and monitor Status: Acute (11) Benign prostatic hyperplasia without urinary obstruction: Problem details: Check bladder scan Status: Acute (12) Fever: Problem details: Fever without apparent source at the time of admission. Cultures pending. Monitor for source of infection. Status: Acute (13) Cognitive impairment: Problem details: Today patient had a [place] score of 12/30. Daughter reports he is not at his baseline at this time and that he is relatively mentally sharp, managing his own medications and driving up until last few days. Status: Acute Plan Continue in hospital for evaluation management of acute and chronic problems. Particular concern to fever, acute right upper extremity pain and swelling and weakness and hypoxia. Time Spent With Patient Total time spent: Total time spent today is 60 minutes, 45 minutes in coordination care discussing with patient, daughter, other providers ongoing evaluation management of fever, hypoxia, right upper extremity problems. Subjective Date Seen: 06/29/22 Interval history: 82-year-old male with stage 4 kidney disease, heart failure with reduced ejection fraction, diabetes mellitus, COPD seen in followup of hospital admission for altered mental status, fever, weakness, hypoxic respiratory failure. Patient has altered mental status and is unable to give much history or detail. Most of this is obtained from the medical record and his daughter. Patient lives in an trailer in [place] in the winter and in [place] in the summer. This past winter in [facility] he developed an abscess and cellulitis in his right arm requiring I and D of the abscess. He also had a DVT in that right upper extremity. He was discharged to a penitentiary in [facility] where he was for up to 2 months of the winter. He was discharged from the penitentiary approximately a month ago. He then was living in his RV in [place] for a couple weeks until he came to live with his daughter June 26. He has been doing poorly in the last few days and because of this she brought him to the emergency department. He has been short of breath. In the last day prior to admission he developed a fever. He was profoundly weak. He became more confused and unable to care for himself. He has developed severe pain in his right arm and shoulder which is new. There is no new injury to his right arm her shoulder. He was driving a motor vehicle as recently as 2 days ago apparently using his right arm without difficulty. Exam Narrative: Exam Narrative: He is alert and appears in no distress. His speech is normal. There is no facial asymmetry. Respirations with bibasilar crackles. He has diminished breath sounds without wheezing. Cardiovascular: S1, S2, regular rate and rhythm. Abdomen: Bowel sounds active. Abdomen is soft without tenderness or mass. When I asked him to move his right upper extremity he takes his left hand and lifts his right hand. He is barely able to lift his right hand without use of his left hand. he has weak table maker in his right fist. Intact sensation in his right hand and intact pulse in his right wrist. He has about 15 ? of forward flexion and abduction in the right shoulder limited by pain. Palpation over the shoulder in arm is minimally tender. He has moderate dependent edema in the right upper extremity below the elbow. He has relatively normal and symmetric strength in his lower extremities with hip flexion, knee flexion extension, ankle dorsiflexion plantar flexion and great toe dorsiflexion. 1+ edema in his feet bilaterally. Intact sensation in his feet. Const: Vital Signs, click to edit/add: Vital Signs - 24 hr 06/28/22 15:12 06/28/22 17:58 06/28/22 18:00 Temperature 99.6 F Pulse Rate 77 76 Pulse Rate [Left R adial] Pulse Rate [Pulse Oximeter] 79 Respiratory Rate 36 H Blood Pressure Blood Pressure [Le ft Arm] Blood Pressure [Ri ght Upper Arm] 170/89 H Pulse Oximetry 89 88 91 Oxygen Delivery Me thod Room Air Oxygen Flow Rate 06/28/22 18:15 06/28/22 18:30 06/28/22 18:45 Temperature Pulse Rate 75 74 74 Pulse Rate [Left R adial] Pulse Rate [Pulse Oximeter] Respiratory Rate Blood Pressure Blood Pressure [Le ft Arm] Blood Pressure [Ri ght Upper Arm] Pulse Oximetry 89 89 89 Oxygen Delivery Me thod Oxygen Flow Rate 06/28/22 18:49 06/28/22 20:38 06/28/22 20:50 Temperature 97 F L Pulse Rate 78 Pulse Rate [Left R adial] 77 Pulse Rate [Pulse Oximeter] Respiratory Rate 16 18 Blood Pressure 159/89 H Blood Pressure [Le ft Arm] 141/87 H Blood Pressure [Ri ght Upper Arm] Pulse Oximetry 91 92 92 Oxygen Delivery Me thod Nasal Cannula Nasal Cannula Oxygen Flow Rate 1 1 06/28/22 20:55 06/28/22 21:51 06/28/22 22:38 Temperature 97 F L 98 F Pulse Rate 77 Pulse Rate [Left R adial] 77 Pulse Rate [Pulse Oximeter] Respiratory Rate 18 18 Blood Pressure Blood Pressure [Le ft Arm] 141/87 H 164/85 H Blood Pressure [Ri ght Upper Arm] Pulse Oximetry 92 91 Oxygen Delivery Me thod Nasal Cannula Nasal Cannula Oxygen Flow Rate 1 1 06/28/22 22:39 06/28/22 22:41 06/29/22 02:37 Temperature 98 F Pulse Rate Pulse Rate [Left R adial] 77 79 Pulse Rate [Pulse Oximeter] Respiratory Rate 18 18 Blood Pressure Blood Pressure [Le ft Arm] 161/92 H Blood Pressure [Ri ght Upper Arm] Pulse Oximetry 91 91 Oxygen Delivery Me thod Nasal Cannula Nasal Cannula Oxygen Flow Rate 1 1 06/29/22 07:42 06/29/22 08:00 06/29/22 08:00 Temperature 99.1 F Pulse Rate 73 Pulse Rate [Left R adial] 76 Pulse Rate [Pulse Oximeter] Respiratory Rate 20 Blood Pressure Blood Pressure [Le ft Arm] 169/81 H Blood Pressure [Ri ght Upper Arm] Pulse Oximetry 92 92 Oxygen Delivery Me thod Nasal Cannula Nasal Cannula Oxygen Flow Rate 1 1 06/29/22 11:20 Temperature 99.1 F Pulse Rate Pulse Rate [Left R adial] Pulse Rate [Pulse Oximeter] Respiratory Rate 20 Blood Pressure Blood Pressure [Le ft Arm] 120/66 Blood Pressure [Ri ght Upper Arm] Pulse Oximetry 92 Oxygen Delivery Me thod Nasal Cannula Oxygen Flow Rate 1 Documenting provider has reviewed patient's vital signs: yes Labs Labs: Laboratory Results - last 24 hr 06/28/22 06/28/22 06/28/22 16:00 17:57 18:12 WBC 9.54 RBC 3.64 L Hgb 11.4 L Hct 34.4 L MCV 95 MCH 31 MCHC 33 RDW Coeff of Chris 14.5 Plt Count 161 Neut % (Auto) 70.3 Lymph % (Auto) 12.8 L [place] % (Auto) 15.4 H Eos % (Auto) 0.6 Baso % (Auto) 0.3 Neut # (Auto) 6.70 Lymph # (Auto) 1.20 [place] # (Auto) 1.50 H Eos # (Auto) 0.06 Baso # (Auto) 0.03 INR 1.09 APTT 33 D-Dimer Quant (PE/DVT) < 0.27 Sodium 137 Potassium 4.6 Chloride 104 Carbon Dioxide 25 BUN 63 H Creatinine 2.2 H Estimated Creat Clear 23.76 Estimated GFR 29 Glucose 290 H Uric Acid 8.7 H Calcium 9.8 Total Bilirubin 1.0 Direct Bilirubin 0.4 AST 26 ALT 19 Alkaline Phosphatase 98 Troponin I C-Reactive Protein 5.4 H NT-Pro-B Natriuret Pep 09403 Total Protein 7.2 Albumin 3.9 Procalcitonin 0.12 Urine Color Yellow Urine Appearance Clear Urine pH 6.0 Ur Specific [place] 1.020 Urine Protein 3+ A Urine Glucose (UA) Trace A Urine Ketones Negative Urine Blood 3+ A Urine Nitrite Negative Urine Bilirubin Negative Urine Urobilinogen 0.2 Ur Leukocyte Esterase Negative Urine RBC 2-5 A Urine WBC 0-2 Ur Squamous Epith Cells None Urine Bacteria None SARS-CoV-2 (PCR) Negative SARS-CoV-2 Influenza Type A (PCR) Negative PCR FLU A Influenza Type B (PCR) Negative PCR FLU B RSV (PCR) Negative PCR RSV POC Troponin I 0.19 H 0.22 H 06/28/22 06/29/22 22:23 06:42 WBC 12.53 H RBC 3.47 L Hgb 10.8 L Hct 32.9 L MCV 95 MCH 31 MCHC 33 RDW Coeff of Chris 14.4 Plt Count 146 Neut % (Auto) 79.5 H Lymph % (Auto) 7.2 L [place] % (Auto) 12.5 H Eos % (Auto) 0.2 Baso % (Auto) 0.2 Neut # (Auto) 10.00 H Lymph # (Auto) 0.90 [place] # (Auto) 1.60 H Eos # (Auto) 0.00 Baso # (Auto) 0.00 INR APTT D-Dimer Quant (PE/DVT) Sodium 136 Potassium 4.5 Chloride 104 Carbon Dioxide 25 BUN 65 H Creatinine 2.2 H Estimated Creat Clear 23.76 Estimated GFR 29 Glucose 231 H Uric Acid Calcium 9.5 Total Bilirubin Direct Bilirubin AST ALT Alkaline Phosphatase Troponin I 0.20 H* 0.24 H* C-Reactive Protein NT-Pro-B Natriuret Pep Total Protein Albumin Procalcitonin Urine Color Urine Appearance Urine pH Ur Specific [place] Urine Protein Urine Glucose (UA) Urine Ketones Urine Blood Urine Nitrite Urine Bilirubin Urine Urobilinogen Ur Leukocyte Esterase Urine RBC Urine WBC Ur Squamous Epith Cells Urine Bacteria SARS-CoV-2 (PCR) Influenza Type A (PCR) Influenza Type B (PCR) RSV (PCR) POC Troponin I
[2022-06-29] MEDS: IPRAT-ALBUT 0.5-2.5 MG/3 ML NEB 1 NEB IH ×3 (12:48→23:00)
--- NOTE | 2022-06-29 13:38 | RESP.RT ---
Patient sitting up in chair, on NC 2 Lpm, SaO2 92%, breathing regular/easy. DuoNeb given with medical air flow meter at 6 Lpm with small volume nebulizer and mouth piece, use well. Post treatment SaO2 92%, patient able to take larger breath, demonstrates, and states so. Bilateral breath sounds fine crackles/diminished with fair air movement, Airment increased slightly post treatment.
--- NOTE | 2022-06-29 14:38 | PC.NURSE ---
Pt has had a low grade fever on day shift. Dr. Mosley aware on rounds. Pt to X-ray via w/c for film of right arm and R shoulder d/to swelling of right arm and pt's decreased mobility since when he was able to drive with both hands. Pt remains slightly confused, occasional trouble with word finding. PT, OT and RT evaluations completed. Pt needs a bladder scan. Good appetite and no dysphagia with meds, sleeping in recliner. Tele NSR, paced. Report to oncoming shift POLLO [place].
[2022-06-29] MEDS: ACETAMINOPHEN 325 MG TABLET 650 MG PO (15:22)
[2022-06-29] MEDS: POTASSIUM BICARB 25 MEQ EFFERVESCENT TAB PO (17:27)
[2022-06-29] MEDS: ATORVASTATIN CALCIUM 40 MG TABLET PO (17:27)
--- NOTE | 2022-06-29 19:30 | PC.NURSE ---
[id number]: Patient voided x 2 during shift. Patient voided 300 with PVR of 349. Provider notified. Patient then voided 150 and had a PVR of 253. Patient AAO x 2. Patient remains with increased lethargy. Patient with great appetite and ate 100% of dinner. Patient pleasant and cooperative. Patient trialed on room air. Patient remained at 98% oxygen level until he feel asleep and then oxygen level decreased to 89% on RA and was then placed on 89%. Patient was given 80 IVP of lasix at approx 1800 and awaiting patient to urinate. Will continue to monitor and bladder scan.
[2022-06-29] MEDS: ENOXAPARIN 30 MG/0.3ML INJ SUBCUT (20:11)
[2022-06-30] VITALS (12 sets, daily range): BP systolic 116–140; BP diastolic 63–74; PULSE 66–74; RESP 16–26; TEMP 36.3–37.3; O2SAT 88–96
--- NOTE | 2022-06-30 04:37 | PC.NURSE ---
Pt rested very well this night compared to previous night. Pt was more comfortable in chair than bed. Up SBA to BR. Pain remains in right shoulder. Edema in right hand. Both from Cellulitis episode in [place] several weeks ago. Pt slightly confused but pleasant and follows directions. Pt has pace maker.
[2022-06-30] MEDS: IPRAT-ALBUT 0.5-2.5 MG/3 ML NEB 1 NEB IH ×3 (06:04→17:59)
[2022-06-30 06:56] LABS: HCO3 VBG 26 mmol/L (21-28); PCO2 VBG 39 mmHG (40-50); PO2 VBG 42.1 mmHG (25-47); pH VBG 7.439 (7.32-7.43)
[2022-06-30 07:02] LABS: Basophils Percent Auto 0.2 % (0.0-3.0); Eosinophils Percent Auto 0.8 % (0.0-7.0); Hematocrit 33.1 % (37.0-53.0); Hemoglobin* 10.9 gm/dL (13.5-17.5); Immature Granulocytes Pct Auto 0.2 %; Lymphocytes Percent Auto 12.5 % (20-44); Mean Corpuscular HGB Conc 33 gm/dL (32-36); Mean Corpuscular Hemoglobin 31 pg (26-34); Mean Corpuscular Volume 94 fL (80-100); Monocytes Percent Auto 14.4 % (0.0-11.0); Neutrophils Percent Auto 71.9 % (42.0-72.0); Platelet Count* 167 K/uL (140-440); RDW Coefficient of Variation % 14.3 % (11.5-15.5); Red Blood Count 3.52 m/uL (4.30-5.90); White Blood Count* 11.69 K/uL (4.50-11.00)
[2022-06-30 07:14] LABS: Slide Review Reflex No
[2022-06-30 07:26] LABS: Chloride* 101 mmol/L (96-114); Sodium* 134 mmol/L (135-149)
[2022-06-30 07:29] LABS: Blood Urea Nitrogen* 78 mg/dL (7-30); Carbon Dioxide* 26 mmol/L (20-32); Creatinine* 2.6 mg/dL (0.5-1.5); Est. Creatinine Clearance* 20.11; Estimated Glomerular Filt Rate 24 ml/min; Glucose* 145 mg/dL (60-115); Potassium* 4.4 mmol/L (3.6-5.1)
[2022-06-30 07:30] LABS: Calcium* 9.4 mg/dL (8.4-10.6)
[2022-06-30 07:33] LABS: Hemoglobin A1C* 8.37 % (0-5.6)
[2022-06-30 07:50] LABS: C Reactive Protein* 19.8 mg/dL (0.5-1.0)
[2022-06-30 07:51] LABS: Troponin I* 0.25 ng/mL (0.01-0.04)
[2022-06-30] MEDS: ACETAMINOPHEN 325 MG TABLET 650 MG PO (08:41)
[2022-06-30] MEDS: TAMSULOSIN HCL 0.4 MG CAPSULE PO (08:42)
[2022-06-30] MEDS: carvediloL 6.25 MG TABLET 12.5 MG PO ×2 (08:42→22:01)
[2022-06-30] MEDS: FINASTERIDE 5 MG TABLET PO (08:43)
[2022-06-30] MEDS: AMLODIPINE 10 MG TABLET PO (08:43)
[2022-06-30] MEDS: SODIUM CHLORIDE 0.9 % (FLUSH) 10 ML SYRINGE 5 ML IVF (08:48)
[2022-06-30] MEDS: ASPIRIN 81 MG TABLET EC PO (08:49)
--- NOTE | 2022-06-30 16:43 | PM.IMPN1 ---
Progress Note: A&P Assessment and plan (1) Pain and swelling of right forearm: Problem details: Profound weakness and pain in the right upper extremity. Primarily in the shoulder to a lesser extent the elbow and wrist. Forearm has moderate edema which appears to be dependent. His daughter reports the time course of this is a couple days though the patient indicated that it may be a longer problem, especially with his shoulder. Previous history of surgery to the right upper extremity, forearm, with his abscess and cellulitis earlier this winter noted. Also noted previous DVT of the right upper extremity. Cause for current symptoms is uncertain. Could primarily be a musculoskeletal injury and pain problem. Neurologic problem seems less likely Status: Acute (2) Elevated troponin: Problem details: Likely demand ischemia related to chronic heart failure, stage 4 kidney disease, current hypoxia and fever. Continue to trend and monitor for symptoms Status: Acute (3) Anemia in chronic kidney disease: Problem details: -02/06/2021 Hgb 10.1 -12/18/2021 Hgb 13.3 Status: Chronic (4) Diabetes mellitus type 2 in obese: Problem details: Last hemoglobin A1c 12/18/2021 was 7.4. Continue to monitor and manage blood sugar. Status: Chronic (5) Left bundle branch block: Problem details: 10/11/2013 ECG Sinus rhythm with LBBB with secondary ST-T changes. No previous ECG to compare. Status: Chronic (6) Chronic combined systolic (congestive) and diastolic (congestive) heart failure: Problem details: Last echo 03/29/2021 showed normal left ventricular size with mildly increased wall thickness and moderately reduced global systolic function with an ejection fraction of 34%. Normal right ventricle and no marked valvular disease. Status: Acute (7) Stage 4 chronic kidney disease: Problem details: Saw radiation oncology therapist on 01/21/2022 creatinine of 2.4 and GFR of 26 which was reported to be stable at that point. Creatinine increased from 2.2-2.4 today Status: Acute (8) Hypoxia: Problem details: Suspect heart failure exacerbation. IV furosemide and obtain echo. He has a history of being on and off oxygen in the past. Status: Acute (9) Frailty: Problem details: Patient is been in an out of the hospital in long-term multiple times in the last couple years associated with his right arm infection and COVID infection. Multiple serious chronic medical problems. I began a discussion with patient and his daughter about needing more assistance and supervision Status: Acute (10) Chronic obstructive pulmonary disease: Problem details: With current hypoxia will initiate nebulizer treatments and monitor Status: Acute (11) Benign prostatic hyperplasia without urinary obstruction: Problem details: Check bladder scan Status: Acute (12) Fever: Problem details: Fever without apparent source at the time of admission. Cultures pending. Monitor for source of infection. Status: Acute (13) Cognitive impairment: Problem details: Today patient had a [place] score of 12/30. Daughter reports he is not at his baseline at this time and that he is relatively mentally sharp, managing his own medications and driving up until last few days. Status: Acute Plan Continue in hospital for evaluation of hypoxia, monitoring for fever, treatment of heart failure and monitoring of coronary artery disease. Evaluation treatment of right upper extremity pain weakness and swelling. This point appears he may need higher level of care. Dukey Rider to assess along with physical therapy and occupational therapy. Time Spent With Patient Total time spent: Total time spent today is 40 minutes, 30 minutes in coordination of care discussing with patient and other providers ongoing evaluation management of his disabilities, hypoxia and mental status Subjective Date Seen: 06/30/22 Interval history: 82-year-old male with stage 4 kidney disease, heart failure with reduced ejection fraction, diabetes mellitus, COPD seen in followup of hospital admission for altered mental status, fever, weakness, hypoxic respiratory failure. Patient has altered mental status and is unable to give much history or detail. Most of this is obtained from the medical record and his daughter. Patient lives in an trailer in [place] in the winter and in [place] in the summer. This past winter in [facility] he developed an abscess and cellulitis in his right arm requiring I and D of the abscess. He also had a DVT in that right upper extremity. He was discharged to a long-term in [facility] where he was for up to 2 months of the winter. He was discharged from the long-term approximately a month ago. He then was living in his RV in [place] for a couple weeks until he came to live with his daughter June 26. He has been doing poorly in the last few days and because of this she brought him to the emergency department. He has been short of breath. In the last day prior to admission he developed a fever. He was profoundly weak. He became more confused and unable to care for himself. He has developed severe pain in his right arm and shoulder which is new. There is no new injury to his right arm her shoulder. He was driving a motor vehicle as recently as 2 days ago apparently using his right arm without difficulty. Overnight he reports being about the same. Still having quite of pain in immobility in his right arm. Indicating that this is quite a chronic problem. Has a small superficial abrasion over the extensor forearm close to the elbow which he says came from a screen door causing the abrasion. He still has edema in that arm and limited motion in the elbow and shoulder and weakness in the whole arm which he indicates has been present since hospitalization earlier in the winter. He is still requiring oxygen to maintain his O2 sats he is not dyspneic. He was diuresed with Lasix for heart failure. He is not sure that it has made a large difference in his breathing. Exam Narrative: Exam Narrative: He is alert and appears in no distress. Speech is normal. Is pleasant cooperative. Respirations with diminished breath sounds. No wheezing. Rare basilar crackle. Cardiovascular: S1, S2, irregular rhythm. Abdomen: Bowel sounds active. Abdomen is soft without tenderness or mass. Extremities with 1+ edema bilaterally. He moves all 4 extremities well. Const: Vital Signs, click to edit/add: Vital Signs - 24 hr 06/29/22 19:24 06/29/22 23:02 06/29/22 23:03 Temperature 97.5 F L 98.4 F Pulse Rate Pulse Rate [Left A pical] 75 66 66 Pulse Rate [Left R adial] Pulse Rate [Pulse Oximeter] Respiratory Rate 16 18 18 Blood Pressure [Le ft Arm] 140/81 H 138/68 Pulse Oximetry 91 90 [facility] Room Air Oxygen Flow Rate 06/29/22 23:04 06/30/22 03:19 06/30/22 08:25 Temperature 98.4 F 99.1 F Pulse Rate Pulse Rate [Left A pical] Pulse Rate [Left R adial] 73 Pulse Rate [Pulse Oximeter] 71 Respiratory Rate 18 18 Blood Pressure [Le ft Arm] 135/71 116/65 Pulse Oximetry 90 90 88 [facility] Room Air Room Air Oxygen Flow Rate 06/30/22 08:00 06/30/22 08:00 06/30/22 08:30 Temperature Pulse Rate Pulse Rate [Left A pical] Pulse Rate [Left R adial] Pulse Rate [Pulse Oximeter] 71 Respiratory Rate Blood Pressure [Le ft Arm] Pulse Oximetry 93 93 Oxygen Delivery Me thod Nasal Cannula Nasal Cannula Oxygen Flow Rate 1 1 06/30/22 07:10 06/30/22 12:00 06/30/22 15:39 Temperature 98.2 F Pulse Rate 66 Pulse Rate [Left A pical] Pulse Rate [Left R adial] Pulse Rate [Pulse Oximeter] 72 Respiratory Rate 16 Blood Pressure [Le ft Arm] 130/63 Pulse Oximetry 91 91 Oxygen Delivery Me thod Room Air Nasal Cannula Oxygen Flow Rate 1 06/30/22 15:00 06/30/22 16:00 06/30/22 15:05 Temperature 97.3 F L Pulse Rate 70 Pulse Rate [Left A pical] Pulse Rate [Left R adial] Pulse Rate [Pulse Oximeter] 72 72 Respiratory Rate 18 Blood Pressure [Le ft Arm] 140/74 H Pulse Oximetry 91 Oxygen Delivery Me thod Nasal Cannula Oxygen Flow Rate 1 Documenting provider has reviewed patient's vital signs: yes Labs Labs: Laboratory Results - last 24 hr 06/30/22 06:34 WBC 11.69 H RBC 3.52 L Hgb 10.9 L Hct 33.1 L MCV 94 MCH 31 MCHC 33 RDW Coeff of Chris 14.3 Plt Count 167 Neut % (Auto) 71.9 Lymph % (Auto) 12.5 L [place] % (Auto) 14.4 H Eos % (Auto) 0.8 Baso % (Auto) 0.2 Neut # (Auto) 8.40 H Lymph # (Auto) 1.50 [place] # (Auto) 1.70 H Eos # (Auto) 0.10 Baso # (Auto) 0.00 VBG pH 7.439 H VBG pCO2 39 L VBG pO2 42.1 VBG HCO3 26 Sodium 134 L Potassium 4.4 Chloride 101 Carbon Dioxide 26 BUN 78 H Creatinine 2.6 H Estimated Creat Clear 20.11 Estimated GFR 24 Glucose 145 H Hemoglobin A1c 8.37 H Calcium 9.4 Troponin I 0.25 H* C-Reactive Protein 19.8 H
[2022-06-30] MEDS: ATORVASTATIN CALCIUM 40 MG TABLET PO (17:37)
--- NOTE | 2022-06-30 18:23 | PC.NURSE ---
Pt A&O. SBA w/ gait belt. Complains of 6/10 pain in right arm, PRN Tylenol given, upon reassessment pt states no relief, it is always there. Pt complained of old bandage on arm, after removal it appeared to be a healing skin tear with minimal drainage. Dr. Mosley notified and viewed. Mepilex placed on left elbow per MD request. Hospital records were requested and hospital contacted by CLUB WAITER/WAITRESS multiple times with no records received.
[2022-06-30] MEDS: ENOXAPARIN 30 MG/0.3ML INJ SUBCUT (22:00)
[2022-07-01] VITALS (11 sets, daily range): BP systolic 124–142; BP diastolic 61–76; PULSE 54–82; RESP 18–26; TEMP 36.6–38.3; O2SAT 93–98
[2022-07-01] MEDS: IPRAT-ALBUT 0.5-2.5 MG/3 ML NEB 1 NEB IH ×5 (00:31→23:33)
[2022-07-01] MEDS: ACETAMINOPHEN 325 MG TABLET 650 MG PO ×2 (02:37→19:21)
--- NOTE | 2022-07-01 06:44 | PC.NURSE ---
Pt is alert and oriented x3.? Around 0230 pt had temperature of 100.2 F and reports 6/10 pain in right hand, pain and fever managed with PRN medication, temp checked again at 0410, 97.8 F. Pt denies SOB but has a respiratory rate ranging between 24-26, Chest pain, and N/V. Pt is voiding, tolerating a regular diet, up SBA with walker and gait belt.
[2022-07-01 07:07] LABS: Basophils Absolute Auto 0.01 K/uL (0.00-0.30); Basophils Percent Auto 0.1 % (0.0-3.0); Eosinophils Percent Auto 2.3 % (0.0-7.0); Hematocrit 29.4 % (37.0-53.0); Hemoglobin* 9.7 gm/dL (13.5-17.5); Immature Granulocytes Abs Auto 0.01 K/uL (0.00-0.30); Immature Granulocytes Pct Auto 0.1 %; Lymphocytes Percent Auto 12.2 % (20-44); Mean Corpuscular HGB Conc 33 gm/dL (32-36); Mean Corpuscular Hemoglobin 31 pg (26-34); Mean Corpuscular Volume 94 fL (80-100); Monocytes Percent Auto 14.4 % (0.0-11.0); Neutrophils Absolute Auto 6.18 K/uL (1.7-7.0); Neutrophils Percent Auto 70.9 % (42.0-72.0); Platelet Count* 162 K/uL (140-440); RDW Coefficient of Variation % 14.1 % (11.5-15.5); Red Blood Count 3.13 m/uL (4.30-5.90); White Blood Count* 8.71 K/uL (4.50-11.00)
[2022-07-01 07:09] LABS: Slide Review Reflex No
[2022-07-01 07:11] LABS: Chloride* 101 mmol/L (96-114); Sodium* 134 mmol/L (135-149)
[2022-07-01 07:14] LABS: Blood Urea Nitrogen* 92 mg/dL (7-30); Calcium* 8.9 mg/dL (8.4-10.6); Carbon Dioxide* 25 mmol/L (20-32); Creatinine* 2.7 mg/dL (0.5-1.5); Est. Creatinine Clearance* 19.36; Estimated Glomerular Filt Rate 23 ml/min; Glucose* 144 mg/dL (60-115)
[2022-07-01 08:14] LABS: C Reactive Protein* 17.9 mg/dL (0.5-1.0)
[2022-07-01] MEDS: AMLODIPINE 10 MG TABLET PO (08:52)
[2022-07-01] MEDS: carvediloL 6.25 MG TABLET 12.5 MG PO ×2 (08:52→21:02)
[2022-07-01] MEDS: ASPIRIN 81 MG TABLET EC PO (08:53)
[2022-07-01] MEDS: FINASTERIDE 5 MG TABLET PO (08:53)
[2022-07-01] MEDS: TAMSULOSIN HCL 0.4 MG CAPSULE PO (09:00)
[2022-07-01] MEDS: SODIUM CHLORIDE 0.9 % (FLUSH) 10 ML SYRINGE 5 ML IVF ×2 (11:56→21:02)
--- NOTE | 2022-07-01 16:16 | PC.NURSE ---
TELE NSR, heather to RUE to help with swelling, elevated RUE on pillow. Mepilex CDI on skin tear right forearm. Continent of bowel and bladder. No dysphagia with meds. Please see eMar for BG values and SS insulin doses given at bkfst and lunch. Report to Jeanine ABAD for evening shift.
--- NOTE | 2022-07-01 16:24 | PC.SOCIAL ---
Discharge planning: Met with pt regarding d/c plan. Pt states his plan is to return to his daughter's home which is the [place] address listed on his face sheet. Pt states his daughter works as a nurse during the day but her works form home. Pt states he will have help at home from them as needed. Pt shared that he did not have a good experience at the halfway facility in [place] and will not consider being discharged to a halfway facility. Pt gave permission for foster care social worker to discuss discharge plans with his daughter. Called daughter, Kristin Mendoza [phone] and confirmed with dtr pt's plan to return home with family help at discharge. Dtr agrees with this plan and confirmed they are not interested in a halfway placement at discharge. clothing worker to follow up as needed.
--- NOTE | 2022-07-01 16:49 | P.IMPN_ITS ---
Progress Note: A&P Assessment and plan (1) Pain and swelling of right forearm: Problem details: Profound weakness and pain in the right upper extremity. Primarily in the shoulder to a lesser extent the elbow and wrist. Forearm has moderate edema which appears to be dependent. His daughter reports the time course of this is a couple days though the patient indicated that it may be a longer problem, with shoulder problems for years and forearm problems since his infection and surgery earlier in the winter. Previous history of surgery to the right upper extremity, forearm, with his abscess and cellulitis earlier this winter noted. Also noted previous DVT of the right upper extremity at that time. My impression is that his right upper extremity problems are chronic. Records from [place] are pending. Status: Acute (2) Elevated troponin: Problem details: Likely demand ischemia related to chronic heart failure, stage 4 kidney disease, current hypoxia and fever. Continue to trend and monitor for symptoms Status: Acute (3) Anemia in chronic kidney disease: Problem details: -02/06/2021 Hgb 10.1 -12/18/2021 Hgb 13.3 Status: Chronic (4) Diabetes mellitus type 2 in obese: Problem details: Last hemoglobin A1c 12/18/2021 was 7.4. Continue to monitor and manage blood sugar. Status: Chronic (5) Left bundle branch block: Problem details: 10/11/2013 ECG Sinus rhythm with LBBB with secondary ST-T changes. No previous ECG to compare. Status: Chronic (6) Chronic combined systolic (congestive) and diastolic (congestive) heart failure: Problem details: Echo from 07/01/2022 shows normal LV size with mildly increased wall thickness and mildly reduced global systolic function with ejection fraction of 40-45%. No marked valvular disease Status: Acute (7) Stage 4 chronic kidney disease: Problem details: Saw autos disassembler on 01/21/2022 creatinine of 2.4 and GFR of 26 which was reported to be stable at that point. Creatinine increased from 2.2-2.4 today Status: Acute (8) Hypoxia: Problem details: Suspect heart failure exacerbation. IV furosemide and obtain echo. He has a history of being on and off oxygen in the past. Status: Acute (9) Frailty: Problem details: Patient is been in an out of the hospital in correction multiple times in the last couple years associated with his right arm infection and COVID infection. Multiple serious chronic medical problems. I began a discussion with patient and his daughter about needing more assistance and supervision Status: Acute (10) Chronic obstructive pulmonary disease: Problem details: With current hypoxia will initiate nebulizer treatments and monitor Status: Acute (11) Benign prostatic hyperplasia without urinary obstruction: Problem details: Check bladder scan Status: Acute (12) Fever: Problem details: Fever without apparent source at the time of admission. Cultures pending. Monitor for source of infection. Still having low-grade fevers 100.2. Elevated inflammatory markers of uncertain etiology. Status: Acute (13) Cognitive impairment: Problem details: Today patient had a Mackay score of 12/30. Daughter reports he is not at his baseline at this time and that he is relatively mentally sharp, managing his own medications and driving up until last few days. Status: Acute Plan Continue in hospital for evaluation management of fever, hypoxia. Continue to work on plan for disposition with therapy and social media editor. No clear safe discharge plan at this time. Time Spent With Patient Total time spent: Total time spent today is 40 minutes, 30 minutes in coordination of care and discussing with other providers ongoing evaluation management of disability, fever, hypoxia Subjective Date Seen: 07/01/22 Interval history: 82-year-old male with stage 4 kidney disease, heart failure with reduced ejection fraction, diabetes mellitus, COPD seen in followup of hospital admission for altered mental status, fever, weakness, hypoxic respiratory failure. Patient has altered mental status and is unable to give much history or detail. Most of this is obtained from the medical record and his daughter. Patient lives in an trailer in [place] in the winter and in [place] in the summer. This past winter in [facility] he developed an abscess and cellulitis in his right arm requiring I and D of the abscess. He also had a DVT in that right upper extremity. He was discharged to a correction in [facility] where he was for up to 2 months of the winter. He was discharged from the correction approximately a month ago. He then was living in his RV in [place] for a couple weeks until he came to live with his daughter June 26. He has been doing poorly in the last few days and because of this she brought him to the emergency department. He has been short of breath. In the last day prior to admission he developed a fever. He was profoundly weak. He became more confused and unable to care for himself. He has developed severe pain in his right arm and shoulder which is new. There is no new injury to his right arm her shoulder. He was driving a motor vehicle as recently as 2 days ago apparently using his right arm without difficulty. Overnight he reports being about the same. Still having quite of pain in immobility in his right arm. Indicating that this is quite a chronic problem. Has a small superficial abrasion over the extensor forearm close to the elbow which he says came from a screen door causing the abrasion. He still has edema in that arm and limited motion in the elbow, shoulder and hand weakness in the whole arm which he indicates has been present since hospitalization earlier in the winter. Pain in the entire right arm is also been present since his arm surgery. He is still requiring oxygen to maintain his O2 sats he is not dyspneic. He was diuresed with Lasix for heart failure. He is not sure that it has made a large difference in his breathing. He is unaware of a fever. He is not experiencing shortness of breath chest pain or abdominal pain. He has been eating well ports bowel function has been normal. He has been up walking with therapy and is quite steady on his feet. Exam Narrative: Exam Narrative: He is alert and appears in no distress. Speech is normal. He is oriented to his circumstances. Respirations with diminished breath sounds and occasional wheeze. Rare crackle also noted. Cardiovascular: S1, S2, regular rate and rhythm. Abdomen: Bowel sounds active. Abdomen is soft without tenderness. Right upper extremity exam is unchanged with very limited motion in the right shoulder, right elbow, right wrist and hand. He has edema that is prominent in the forearm and hand. Wrist and hand are also quite weak. Left upper extremity and both lower extremities have normal CMS examination. Const: Vital Signs, click to edit/add: Vital Signs - 24 hr 06/30/22 20:00 07/01/22 00:00 06/30/22 23:26 Temperature 97.8 F 98.5 F Pulse Rate 71 Pulse Rate [Left A pical] Pulse Rate [Pulse Oximeter] 74 71 Respiratory Rate 18 26 H Blood Pressure [Le ft Arm] 138/64 135/69 Pulse Oximetry 96 94 Oxygen Delivery Me thod Nasal Cannula Nasal Cannula Oxygen Flow Rate 1 1 06/30/22 23:26 06/30/22 23:26 07/01/22 02:37 Temperature 100.2 F H Pulse Rate Pulse Rate [Left A pical] Pulse Rate [Pulse Oximeter] 71 Respiratory Rate 26 H 26 H Blood Pressure [Le ft Arm] Pulse Oximetry 94 Oxygen Delivery Me thod Nasal Cannula Oxygen Flow Rate 1 07/01/22 02:30 07/01/22 07:39 07/01/22 07:00 Temperature 100.2 F H Pulse Rate 65 Pulse Rate [Left A pical] Pulse Rate [Pulse Oximeter] 71 Respiratory Rate 24 20 Blood Pressure [Le ft Arm] 135/70 Pulse Oximetry 93 93 Oxygen Delivery Me thod Nasal Cannula Nasal Cannula Oxygen Flow Rate 1 1 07/01/22 08:00 07/01/22 12:00 Temperature 98.1 F 97.8 F Pulse Rate Pulse Rate [Left A pical] 66 68 Pulse Rate [Pulse Oximeter] 66 68 Respiratory Rate 20 18 Blood Pressure [Le ft Arm] 142/76 H 133/68 Pulse Oximetry 93 93 Oxygen Delivery Me thod Nasal Cannula Nasal Cannula Oxygen Flow Rate 1 1 Documenting provider has reviewed patient's vital signs: yes Labs Labs: Laboratory Results - last 24 hr 07/01/22 06:35 WBC 8.71 RBC 3.13 L Hgb 9.7 L Hct 29.4 L MCV 94 MCH 31 MCHC 33 RDW Coeff of Chris 14.1 Plt Count 162 Neut % (Auto) 70.9 Lymph % (Auto) 12.2 L [place] % (Auto) 14.4 H Eos % (Auto) 2.3 Baso % (Auto) 0.1 Neut # (Auto) 6.18 Lymph # (Auto) 1.10 [place] # (Auto) 1.30 H Eos # (Auto) 0.20 Baso # (Auto) 0.01 Sodium 134 L Potassium 4.0 Chloride 101 Carbon Dioxide 25 BUN 92 H Creatinine 2.7 H Estimated Creat Clear 19.36 Estimated GFR 23 Glucose 144 H Calcium 8.9 C-Reactive Protein 17.9 H
--- NOTE | 2022-07-01 16:53 | PC.NURSE ---
[id number] returned call to daughter Kristin ([phone]) and gave update.
[2022-07-01] MEDS: predniSONE 20 MG TABLET 40 MG PO (17:56)
[2022-07-01] MEDS: ATORVASTATIN CALCIUM 40 MG TABLET PO (17:56)
[2022-07-01] MEDS: INSULIN PROT/ASP (NOVOLOG 70/30) 100 UNIT/ML 10 UNIT SUBCUT (18:01)
[2022-07-01] MEDS: ENOXAPARIN 30 MG/0.3ML INJ SUBCUT (21:02)
--- NOTE | 2022-07-01 22:15 | PC.NURSE ---
[id number] Pt up in recliner entire shift, asked to sleep there for the night. Up to BR with GB/SBA. Pt continent but also has incontinent episodes. Does not use call light, education completed several times during shift with reinforcement on using call like to ask for help, pt acknowledges understanding and demonstrates call light use. c/o pain to R hand 6/10 pain, high temp this shift of 100.9, prn tylenol administered with relief.
[2022-07-02] VITALS (8 sets, daily range): BP systolic 128–143; BP diastolic 65–75; PULSE 50–64; RESP 16–22; TEMP 36.1–37.1; O2SAT 91–97
[2022-07-02] MEDS: IPRAT-ALBUT 0.5-2.5 MG/3 ML NEB 1 NEB IH ×3 (05:32→21:01)
[2022-07-02] MEDS: ACETAMINOPHEN 325 MG TABLET 650 MG PO (05:32)
[2022-07-02 07:33] LABS: Basophils Absolute Auto 0.01 K/uL (0.00-0.30); Basophils Percent Auto 0.2 % (0.0-3.0); Hemoglobin* 10.4 gm/dL (13.5-17.5); Immature Granulocytes Abs Auto 0.02 K/uL (0.00-0.30); Immature Granulocytes Pct Auto 0.3 %; Lymphocytes Percent Auto 8.7 % (20-44); Mean Corpuscular HGB Conc 34 gm/dL (32-36); Mean Corpuscular Hemoglobin 31 pg (26-34); Mean Corpuscular Volume 93 fL (80-100); Monocytes Percent Auto 3.9 % (0.0-11.0); Neutrophils Percent Auto 86.9 % (42.0-72.0); Platelet Count* 171 K/uL (140-440); RDW Coefficient of Variation % 13.8 % (11.5-15.5); Red Blood Count 3.34 m/uL (4.30-5.90); White Blood Count* 6.19 K/uL (4.50-11.00)
[2022-07-02 07:37] LABS: Chloride* 103 mmol/L (96-114); Potassium* 4.4 mmol/L (3.6-5.1); Sodium* 133 mmol/L (135-149)
[2022-07-02 07:40] LABS: Creatinine* 2.4 mg/dL (0.5-1.5); Est. Creatinine Clearance* 21.78; Estimated Glomerular Filt Rate 26 ml/min
[2022-07-02 07:41] LABS: Blood Urea Nitrogen* 99 mg/dL (7-30); Carbon Dioxide* 24 mmol/L (20-32); Glucose* 334 mg/dL (60-115)
--- NOTE | 2022-07-02 07:43 | PC.NURSE ---
Pt is alert and oriented x3.?Pt reports 6/10 pain in right hand, pain managed with PRN medication. Pt denies SOB but has a respiratory rate ranging between 22-24, chest pain, and N/V. Pt is voiding, tolerating a regular diet, up SBA with walker and gait belt. Pt slept throughout most of night in chair.
[2022-07-02 07:47] LABS: Slide Review Reflex No
[2022-07-02 07:59] LABS: C Reactive Protein* 15.4 mg/dL (0.5-1.0)
[2022-07-02 08:29] LABS: Erythrocyte SedimentationRate* 95 mm/hr (2-15)
[2022-07-02] MEDS: INSULIN PROT/ASP (NOVOLOG 70/30) 100 UNIT/ML 15 UNIT SUBCUT ×2 (08:32→17:47)
[2022-07-02] MEDS: predniSONE 20 MG TABLET PO (08:33)
[2022-07-02] MEDS: ASPIRIN 81 MG TABLET EC PO (08:58)
[2022-07-02] MEDS: TAMSULOSIN HCL 0.4 MG CAPSULE PO (08:58)
[2022-07-02] MEDS: carvediloL 6.25 MG TABLET 12.5 MG PO ×2 (08:58→21:01)
[2022-07-02] MEDS: AMLODIPINE 10 MG TABLET PO (08:59)
[2022-07-02] MEDS: FINASTERIDE 5 MG TABLET PO (08:59)
[2022-07-02] MEDS: SODIUM CHLORIDE 0.9 % (FLUSH) 10 ML SYRINGE 5 ML IVF ×2 (09:02→21:02)
[2022-07-02] MEDS: predniSONE 20 MG TABLET 40 MG PO (09:24)
--- NOTE | 2022-07-02 11:24 | RESP.RT ---
Patient sitting up in chair on Room Air, resting comfortably. SaO2 94-96%, breathing regular/easy, good clear voice, good clear nonproductive cough, would be able to clear secretions if any present. BBS clear all paez, good air movement. Patient was on Oxygen during the night. Nebulizer treatment TID, does not do home treatments. Goal to keep patient off Oxygen while maintaining SaO2 >90%, encourage patient to cough and deep breath.
--- NOTE | 2022-07-02 11:28 | PC.NURSE ---
Discharge: Patient pleasant and cooperative. Patient vitally stable, lungs clear, BS WNL, IV removed, catheter intact. Patient 1 assist, walker, gb. Patient rates left knee pain at most 5/10, 10mg of oxy given x2. Patient tolerating regular diet and urinating. Patient dressing C/D/I. Patient signed belongings sheet and discharge form. Patient left the floor by wheelchair at 1127 to home with spouse.
--- NOTE | 2022-07-02 11:29 | RESP.RT ---
Goal; keep patient off Oxygen as tolerated, maintaining SaO2 >90%, if need be nasal cannula at comfortable settings. Encourage patient to cough and deep breath. Nebulizer treatments TID to allow patient to sleep at night.
--- NOTE | 2022-07-02 14:53 | PM.IMPN1 ---
Progress Note: A&P Assessment and plan (1) Pain and swelling of right forearm: Problem details: Profound weakness and pain in the right upper extremity. Primarily in the shoulder to a lesser extent the elbow and wrist. Forearm has moderate edema which appears to be dependent. His daughter reports the time course of this is a couple days though the patient indicated that it may be a longer problem, with shoulder problems for years and forearm problems since his infection and surgery earlier in the winter. Previous history of surgery to the right upper extremity, forearm, with his abscess and cellulitis earlier this winter noted. Also noted previous DVT of the right upper extremity at that time. My impression is that his right upper extremity problems are chronic. Records from [place] are pending. Status: Acute (2) Elevated troponin: Problem details: Likely demand ischemia related to chronic heart failure, stage 4 kidney disease, current hypoxia and fever. Continue to trend and monitor for symptoms Status: Acute (3) Anemia in chronic kidney disease: Problem details: -02/06/2021 Hgb 10.1 -12/18/2021 Hgb 13.3 Status: Chronic (4) Diabetes mellitus type 2 in obese: Problem details: Last hemoglobin A1c 12/18/2021 was 7.4. Continue to monitor and manage blood sugar. Status: Chronic (5) Left bundle branch block: Problem details: 10/11/2013 ECG Sinus rhythm with LBBB with secondary ST-T changes. No previous ECG to compare. Status: Chronic (6) Chronic combined systolic (congestive) and diastolic (congestive) heart failure: Problem details: Echo from 07/01/2022 shows normal LV size with mildly increased wall thickness and mildly reduced global systolic function with ejection fraction of 40-45%. No marked valvular disease Status: Acute (7) Stage 4 chronic kidney disease: Problem details: Saw body technician on 01/21/2022 creatinine of 2.4 and GFR of 26 which was reported to be stable at that point. Creatinine 2.2-2.7-2.4. Status: Acute (8) Hypoxia: Problem details: Suspect heart failure exacerbation. IV furosemide and obtain echo. He has a history of being on and off oxygen in the past. Status: Acute (9) Frailty: Problem details: Patient is been in an out of the hospital in [place] multiple times in the last couple years associated with his right arm infection and COVID infection. Multiple serious chronic medical problems. I began a discussion with patient and his daughter about needing more assistance and supervision. Status: Acute (10) Chronic obstructive pulmonary disease: Problem details: With current hypoxia on prednisone and nebulizers. Appears to be better. Status: Acute (11) Benign prostatic hyperplasia without urinary obstruction: Problem details: Bladder scan as needed Status: Acute (12) Fever: Problem details: Fever without apparent source continues. Cultures negative. Monitor for source of infection. Elevated inflammatory markers of uncertain etiology. Monitor response to prednisone. Status: Acute (13) Cognitive impairment: Problem details: Today patient had a Hartley score of 12/30. Daughter reports he is not at his baseline at this time and that he is relatively mentally sharp, managing his own medications and driving up until last few days. Status: Acute Plan Continue in hospital for another day of evaluation of fever, monitoring for hypoxia, monitoring blood sugars and response to prednisone. Possible discharge to home with daughter in the next 1-2 days if clinically improving Time Spent With Patient Total time spent: Total time spent today is 45 minutes, 30 minutes in discussing with patient and daughter ongoing evaluation management of fevers, right upper extremity problems and hypoxia Subjective Date Seen: 07/02/22 Interval history: 82-year-old male with stage 4 kidney disease, heart failure with reduced ejection fraction, diabetes mellitus, COPD seen in followup of hospital admission for altered mental status, fever, weakness, hypoxic respiratory failure. Patient has altered mental status and is unable to give much history or detail. Most of this is obtained from the medical record and his daughter. Patient lives in an trailer in [place] in the winter and in [place] in the summer. This past winter in [facility] he developed an abscess and cellulitis in his right arm requiring I and D of the abscess. He also had a DVT in that right upper extremity. He was discharged to a halfway in [facility] where he was for up to 2 months of the winter. He was discharged from the halfway approximately a month ago. He then was living in his RV in [place] for a couple weeks until he came to live with his daughter June 26. He has been doing poorly in the last few days and because of this she brought him to the emergency department. He has been short of breath. In the last day prior to admission he developed a fever. He was profoundly weak. He became more confused and unable to care for himself. He has developed severe pain in his right arm and shoulder which is new. There is no new injury to his right arm her shoulder. He was driving a motor vehicle as recently as 2 days ago apparently using his right arm without difficulty. Overnight he reports feeling a little better. Still having quite of pain and immobility in his right arm. Indicating that this is quite a chronic problem. Has a small superficial abrasion over the extensor forearm close to the elbow which he says came from a screen door causing the abrasion. He still has edema in that arm and limited motion in the elbow, shoulder and hand weakness in the whole arm which he indicates has been present since hospitalization earlier in the winter. Pain in the entire right arm is also been present since his arm surgery. Today he is off oxygen maintaining his O2 sats in the low 90s. He reports no breathing troubles. He reports his appetite is very good he has been eating well. No chest pain or abdominal pain. Last night he had a low-grade fever again. No apparent source of fever is identified. With diuresis on admission his creatinine went up. It is now coming down. Blood sugars are elevated today, likely due to onset of prednisone therapy Exam Narrative: Exam Narrative: He is alert and appears in no distress. He is oriented to his circumstances. Breathing is unlabored on room air. Respirations with diminished breath sounds but no wheezing rales or rhonchi. Cardiovascular: S1, S2, regular rate and rhythm. No murmur gallop or rub. Abdomen: Bowel sounds active. Abdomen is soft without tenderness or mass. Extremities without edema. Right upper extremity still moves poorly and with weakness and pain. Edema is mildly improved. Const: Vital Signs, click to edit/add: Vital Signs - 24 hr 07/01/22 15:00 07/01/22 15:00 07/01/22 15:00 Temperature Pulse Rate 69 Pulse Rate [Left A pical] 68 Pulse Rate [Pulse Oximeter] 68 Respiratory Rate 18 Blood Pressure [Le ft Arm] Pulse Oximetry 93 Oxygen Delivery Me thod Nasal Cannula Oxygen Flow Rate 1 07/01/22 19:21 07/01/22 15:00 07/01/22 19:00 Temperature 100.9 F H 100.1 F H 100.9 F H Pulse Rate Pulse Rate [Left A pical] Pulse Rate [Pulse Oximeter] 80 82 Respiratory Rate 20 22 Blood Pressure [Le ft Arm] 126/61 137/68 Pulse Oximetry 94 96 Oxygen Delivery Me thod Nasal Cannula Nasal Cannula Oxygen Flow Rate 1 1 07/01/22 23:30 07/01/22 23:30 07/01/22 23:30 Temperature Pulse Rate 54 L Pulse Rate [Left A pical] Pulse Rate [Pulse Oximeter] 64 Respiratory Rate 24 24 Blood Pressure [Le ft Arm] Pulse Oximetry 98 Oxygen Delivery Me thod Nasal Cannula Oxygen Flow Rate 1 07/01/22 23:30 07/02/22 03:15 07/02/22 07:00 Temperature 98.6 F 98.8 F 96.9 F L Pulse Rate Pulse Rate [Left A pical] Pulse Rate [Pulse Oximeter] 64 50 L 63 Respiratory Rate 24 22 22 Blood Pressure [Le ft Arm] 124/67 136/68 143/75 H Pulse Oximetry 98 97 91 Oxygen Delivery Me thod Nasal Cannula Nasal Cannula Room Air Oxygen Flow Rate 1 1 07/02/22 07:00 07/02/22 07:00 07/02/22 10:22 Temperature Pulse Rate 58 L Pulse Rate [Left A pical] Pulse Rate [Pulse Oximeter] 63 Respiratory Rate 22 22 Blood Pressure [Le ft Arm] Pulse Oximetry 91 Oxygen Delivery Me thod Room Air Oxygen Flow Rate 07/02/22 11:23 07/02/22 12:19 Temperature 96.9 F L Pulse Rate Pulse Rate [Left A pical] Pulse Rate [Pulse Oximeter] 61 Respiratory Rate 18 16 Blood Pressure [Le ft Arm] 128/66 Pulse Oximetry 96 94 Oxygen Delivery Me thod Room Air Room Air Oxygen Flow Rate Documenting provider has reviewed patient's vital signs: yes Labs Labs: Laboratory Results - last 24 hr 07/02/22 06:50 WBC 6.19 RBC 3.34 L Hgb 10.4 L Hct 31.0 L MCV 93 MCH 31 MCHC 34 RDW Coeff of Chris 13.8 Plt Count 171 Neut % (Auto) 86.9 H Lymph % (Auto) 8.7 L [place] % (Auto) 3.9 Eos % (Auto) 0.0 Baso % (Auto) 0.2 Neut # (Auto) 5.40 Lymph # (Auto) 0.50 L [place] # (Auto) 0.20 Eos # (Auto) 0.00 Baso # (Auto) 0.01 ESR 95 H Sodium 133 L Potassium 4.4 Chloride 103 Carbon Dioxide 24 BUN 99 H Creatinine 2.4 H Estimated Creat Clear 21.78 Estimated GFR 26 Glucose 334 H Calcium 9.0 C-Reactive Protein 15.4 H
[2022-07-02] MEDS: ATORVASTATIN CALCIUM 40 MG TABLET PO (17:47)
--- NOTE | 2022-07-02 18:07 | PC.NURSE ---
End of Shift: Patient pleasant and cooperative. Patient vitally stable, lungs clear, BS WNL, IV intact. Patient on RA. Patient SBA when ambulating. Right arm with 2+ pitting edema, mepilex on right arm C/D/I. Patient reports shoulder pain 5/10, but also reports no pain. Patient tolerating regular diet, urinating, and had 2 moderate formed BMs. Patient urinates in toilet but brief is also always wet. Tele= NS w/ BBB. Blood sugars 310, 389, 466.
[2022-07-02] MEDS: ENOXAPARIN 30 MG/0.3ML INJ SUBCUT (21:02)
[2022-07-03 03:00] VITALS: BP 138/64; PULSE 60; RESP 18; TEMP 36.2; O2SAT 92
--- NOTE | 2022-07-03 05:03 | PC.NURSE ---
[id number] Pt slept well during night, ambulating to br with SBA and tolerating activity well. states pain /10 to R shoulder. R arm swelling continues to decrease, dressing to R forearm C/D/I. Pt O2 at 88% on RA while sleeping, when woken up pt increases to low 90's, remained on RA for the entirety of shift. denies SOB, chest pain, difficulty breathing, headache, nausea or vomiting. afebrile this shift.
[2022-07-03 07:00] VITALS: BP 146/71; PULSE 60; PULSE 62; RESP 22; TEMP 36.7; O2SAT 90
[2022-07-03] MEDS: ACETAMINOPHEN 325 MG TABLET 650 MG PO (07:44)
[2022-07-03] MEDS: predniSONE 20 MG TABLET PO (07:44)
[2022-07-03] MEDS: INSULIN PROT/ASP (NOVOLOG 70/30) 100 UNIT/ML 20 UNIT SUBCUT (07:49)
[2022-07-03] MEDS: ASPIRIN 81 MG TABLET EC PO (08:56)
[2022-07-03] MEDS: SODIUM CHLORIDE 0.9 % (FLUSH) 10 ML SYRINGE 5 ML IVF (08:56)
[2022-07-03] MEDS: AMLODIPINE 10 MG TABLET PO (08:56)
[2022-07-03] MEDS: FINASTERIDE 5 MG TABLET PO (08:56)
[2022-07-03] MEDS: IPRAT-ALBUT 0.5-2.5 MG/3 ML NEB 1 NEB IH (08:56)
[2022-07-03] MEDS: carvediloL 6.25 MG TABLET 12.5 MG PO (08:56)
[2022-07-03] MEDS: TAMSULOSIN HCL 0.4 MG CAPSULE PO (08:56)
[2022-07-03 11:00] VITALS: BP 139/69; PULSE 59; RESP 24; TEMP 36.4; O2SAT 92
[2022-07-03 11:15] VITALS: BMI 29.5
--- NOTE | 2022-07-03 15:21 | PC.NURSE ---
Discharge: Patient pleasant and cooperative. Patient vitally stable, lungs clear, BS WNL, IV removed, catheter intact. Patient SBA with ambulation. Patient urinating and had 1 BM. Patient rates shoulder pain at most 4/10, tylenol given once. Patient tolerating diet, blood sugars 461 and 343. Right arm with +2 pitting edema, dressing C/D/I. Patient signed belongings sheet and discharge form. Patient left the floor by wheelchair with daughter to home at 1510.
--- NOTE | 2022-07-03 16:39 | P.DS_ITS ---
DS: Providers Provider Date Seen: 07/03/22 Date of admission: 07/01/22 20:26 Primary care physician: Not a Local Provider Admitting Clinician: Jacquelyn White MD Consults: 06/28/22 21:36 Consult to Physical Therapy [CONS] Routine Comment: Reason(s) for PT Consult:: Evaluate and Treat Any Restrictions?:: No Restrictions Consult to Family Independence Case Manager [CONS] Routine Comment: Reason for Consult:: Discharge Planning Needs 06/28/22 21:38 Consult to Occupational Therapy [CONS] Routine Comment: Reason(s) for OT Consult:: Evaluate and Treat Any Restrictions?:: No Restrictions Attending Physician on discharge: Saul Mosley MD DS: Summary Hospital Course Hospital Course: Initial evaluation: 82-year-old male with stage 4 kidney disease, heart failure with reduced ejection fraction, diabetes mellitus, COPD seen in followup of hospital admission for altered mental status, fever, weakness, hypoxic respiratory failure. Patient has altered mental status and is unable to give much history or detail.? Most of this is obtained from the medical record and his daughter. Patient lives in an trail in [place] in the winter and in [place] in the summer.? This past winter in [facility] he developed an abscess and cellulitis in his right arm requiring I and D of the abscess.? He also had a DVT in that right upper extremity.? He was discharged to a fpc in [facility] wher e he was for up to 2 months of the winter.? He was discharged from the fpc approximately a month ago.? He then was living in his RV in [place] for a couple weeks until he came to live with his daughter June 26.? He has been doing poorly in the last few days and because of this she brought him to the emergency department.? He has been short of breath.? In the last day prior to admission he developed a fever.? He was profoundly weak.? He became more confused and unable to care for himself.? He has developed severe pain in his right arm and shoulder which is new.? There is no new injury to his right arm her shoulder.? He was driving a motor vehicle as recently as 2 days ago apparently using his right arm without difficulty. During his hospital stay he was treated with oxygen for his hypoxia. He was given some diuresis but this did not appear to give obvious benefit for his heart failure and did cause acute kidney injury. He was given nebulizer treatments for his COPD and did receive 1 dose of prednisone. The prednisone caused a marked increase in his blood sugars. His hypoxia did improve in the hospital stay though he remains borderline hypoxic with O2 sats in the low 90s on room air. He will be discharged without oxygen supplementation. His fever was monitor during his hospital stay he had intermittent low-grade fevers around 100? primarily in the evenings. There was never a focus of infection identified. Urinalysis, chest x-ray and blood cultures were all unremarkable. He had no symptoms of infection. He had elevated inflammatory markers, CRP and sed rate, with normal white blood count. I suspected but did not confirm that he had a different inflammatory process. Possibly rheumatic condition or possibly a malignancy. There is no other obvious clue to any other diagnosis. Blood sugars were generally fairly well controlled. He had been on b.i.d. long- acting insulin and I switched this to b.i.d. 70/30 insulin. He tolerated this well. Due to prednisone his blood sugars were quite elevated briefly. Occupational therapy did an evaluation there was some concern for cognitive impairment with a [place] score of 12/30. My clinical impression is that when he is feeling better he will likely score better. 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 He had evaluation of his right upper extremity. Is suspected that the pain, limited mobility, weakness, swelling are related to chronic problems including probable frozen shoulder or rotator cuff pathology, elbow forearm and wrist pathology related to his infection that occurred in [place] this winter and also the right upper extremity DVT that he had at that time. We recommend ongoing therapy to regain right upper extremity function but he declines this. He is going to be discharged home with his daughter. He is indicating a preference to be living independently in his trailer in [place]. At this time we have concerns about his safety in this arrangement. Status at Discharge Cognitive/behavioral status at discharge: Back to baseline Functional status at discharge: independent ambulation Overall status at discharge: patient is progressing back to baseline Time Spent with Patient Time attestation: Total time spent providing and/or coordinating discharge services: Time spent: Greater than 30 minutes Exam Narrative: Exam Narrative: He is alert and pleasant. He appears in no distress. Breathing is unlabored. Respirations with decreased breath sounds. No wheezing rales or rhonchi. Cardiovascular: S1, S2, regular rate and rhythm. Abdomen: Bowel sounds are present. Abdomen is soft without tenderness or mass. Right upper extremity is examined. He has a compression sleeve on his right upper extremity which is helping the edema. Has a small superficial abrasion over his extensor forearm which is healing well. No erythema. Still marked limitation of motion and weakness at right shoulder, elbow, wrist. Const: Vital Signs, click to edit/add: Vital Signs - 24 hr 07/02/22 19:00 07/02/22 23:00 07/02/22 23:00 Temperature 97.2 F L Pulse Rate Pulse Rate [Pulse Oximeter] 63 63 Respiratory Rate 18 18 Blood Pressure [Le ft Arm] 134/67 Pulse Oximetry 92 93 Oxygen Delivery Me thod Room Air Room Air Oxygen Flow Rate 0 07/02/22 23:00 07/02/22 23:00 07/03/22 03:00 Temperature 97.2 F L 97.2 F L Pulse Rate 63 Pulse Rate [Pulse Oximeter] 64 60 Respiratory Rate 18 18 Blood Pressure [Le ft Arm] 135/65 138/64 Pulse Oximetry 93 92 Oxygen Delivery Me thod Room Air Room Air Oxygen Flow Rate 0 0 07/03/22 07:00 07/03/22 07:00 07/03/22 07:00 Temperature 98.1 F Pulse Rate Pulse Rate [Pulse Oximeter] 60 60 Respiratory Rate 22 22 22 Blood Pressure [Le ft Arm] 146/71 H Pulse Oximetry 90 90 Oxygen Delivery Me thod Room Air Room Air Oxygen Flow Rate 0 07/03/22 07:00 07/03/22 11:00 Temperature 97.6 F Pulse Rate 62 Pulse Rate [Pulse Oximeter] 59 L Respiratory Rate 24 Blood Pressure [Le ft Arm] 139/69 Pulse Oximetry 92 Oxygen Delivery Me thod Room Air Oxygen Flow Rate Documenting provider has reviewed patient's vital signs: yes Discharge Plan Discharge Disposition: Home w/ Parent or Adult Date of Admission: 07/01/22 20:26 Attending Provider on Discharge: Saul Mosley Primary Care Provider: Provider,Not a Local Condition: Unchanged Anticipated Discharge Date/Time: 07/03/22 13:00 Discharge Medications: New ipratropium-albuterol 0.5 mg-3 mg(2.5 mg base)/3 mL Solution For Nebulization 3 ml inhalation TID Qty: 180 0RF amlodipine 10 mg Tablet 10 mg PO DAILY Qty: 30 0RF insulin asp prt-insulin aspart [Novolog Mix 70-30FlexPen U-100] 100 unit/mL (70-30) Insulin Pen 20 unit subcut DAILYWM Qty: 15 0RF insulin asp prt-insulin aspart [Novolog Mix 70-30FlexPen U-100] 100 unit/mL (70-30) Insulin Pen 15 unit subcut QPM Qty: 15 0RF Continued atorvastatin 40 mg tablet 40 mg PO QPM carvedilol 12.5 mg tablet 12.5 mg PO BID tamsulosin 0.4 mg capsule 0.4 mg PO DAILY losartan 25 mg tablet 25 mg PO DAILY finasteride 5 mg tablet 5 mg PO HS aspirin 81 mg capsule 81 mg PO DAILY insulin aspart U-100 [Novolog FlexPen U-100 Insulin] 100 unit/mL (3 mL) insulin pen 1 sliding scale dose subcut USEASDIRECTD bumetanide 2 mg tablet See Rx Instructions PO .COMPLEX Rx Instructions: 2mg in am, 1mg at 2pm Chew Q 100 mg tablet,chewable 100 mg PO Q OTHER DAY acetaminophen 500 mg tablet 500 mg PO Q6H PRN albuterol sulfate 90 mcg/actuation aerosol powdr breath activated 2 inh inhalation QAM loratadine [Claritin] 10 mg tablet 5 mg PO QPM Changed allopurinol 100 mg tablet 100 mg PO QPM Qty: 30 0RF Discontinued insulin glargine [Lantus Solostar U-100 Insulin] 100 unit/mL (3 mL) insulin pen 12 unit subcut DAILY insulin glargine [Basaglar KwikPen U-100 Insulin] 100 unit/mL (3 mL) insulin pen 11 unit subcut QPM Discharge Orders: Discharge Order (Routine); Ordered 07/03/22 Ordered By: Saul Mosley Patient Education: Amlodipine (By mouth), Ipratropium/Albuterol (By breathing) (Combivent, Combivent..., Acute Kidney Injury (DC), Diabetes and Your Skin (DC) Additional Instructions: I recommend you have outpatient physical therapy and occupational therapy. I recommend you not drive a car until you have had further assessment with physical therapy and occupational therapy. See your doctor next week for re-evaluation. I recommend recheck of blood test including basic metabolic panel and CRP. I have changed your insulin dosing. Check your blood sugar 4 times a day when you are having your insulin adjusted and at least twice a day when you take insulin after that. Activity Level: Activity as Tolerated Discharge Diet: Diabetic Follow Up Appointments: Teresa Laguna PA-C [Physician Senior Financial Consultant] - 07/09/22 11:20 am (Follow up appointment with Jaspal at the [facility]. Patient returning to [facility].) Rajendra Saldivar MD [Referring] - 07/09/22 9:15 am (Follow-up in 1 week. Check basic metabolic panel and CRP. With Dr. Saldivar in [place].) Provider,Not a Local [Primary Care Provider] - Forms: [employer] Info Instructions
== END 2022-07-03 15:10 | disposition home or self-care (01) | DRG 291 ==
LOC: ED 19:23 → MEDSURG 20:03
PROVIDERS: Family Medicine; Admitting Provider Family Medicine; Emergency Provider Family Medicine; Visit Provider Family Medicine
DX: I13.0 Hypertensive heart and chronic kidney disease with heart failure and stage 1 through stage 4 chronic kidney disease, or unspecified chronic kidney disease (principal); I50.43 Acute on chronic combined systolic (congestive) and diastolic (congestive) heart failure; J96.91 Respiratory failure, unspecified with hypoxia; N17.9 Acute kidney failure, unspecified; N18.4 Chronic kidney disease, stage 4 (severe); I24.8 Other forms of acute ischemic heart disease; Z95.0 Presence of cardiac pacemaker; J44.9 Chronic obstructive pulmonary disease, unspecified; E66.9 Obesity, unspecified; E11.21 Type 2 diabetes mellitus with diabetic nephropathy; I49.5 Sick sinus syndrome; M79.601 Pain in right arm; Z86.718 Personal history of other venous thrombosis and embolism; Z79.01 Long term (current) use of anticoagulants; E11.22 Type 2 diabetes mellitus with diabetic chronic kidney disease; D63.1 Anemia in chronic kidney disease; R50.9 Fever, unspecified; G31.84 Mild cognitive impairment of uncertain or unknown etiology; R60.9 Edema, unspecified; M10.9 Gout, unspecified; I44.7 Left bundle-branch block, unspecified; E78.5 Hyperlipidemia, unspecified; N40.0 Benign prostatic hyperplasia without lower urinary tract symptoms
CPT/HCPCS: 36415; 51798; 70450; 71046; 73030; 73080; 80048; 80076; 81001; 82803; 82962; 83036; 83880; 84145; 84484; 84550; 85025; 85379; 85610; 85651; 85730; 86140; 87040; 87631; 93005; 93306; 93971; 94640; 94761; 97110; 97112; 97116; 97162; 97166; 97530; 97535; 99285; G0378; A9270; J1650; J1940; J7512; S0171